=== PATIENT | female | born 1950 | race Caucasian/White ===

== ENCOUNTER 2018-12-24 12:13 | Inpatient (IN) ==
[2018-12-24] MEDS ORDERED: TIZANIDINE HCL 4 MG PO PRN (13:43)
[2018-12-24] MEDS ORDERED: Nitroglycerin 0.4 MG TAB.SUBL SL PRN (13:43)
[2018-12-24] MEDS ORDERED: Dextrose Gel 15 GM/37.5 ML TUBE PO PRN ×2 (14:12)
[2018-12-24] MEDS ORDERED: D5% in Water 1,000 ML IVC PRN (14:12)
[2018-12-24] MEDS ORDERED: *HR* Dextrose 50 % in Water (Vial) 50 ML VIAL IVP PRN (14:12)
[2018-12-24] MEDS: *HR* HYDROcodone/Acet 7.5/325 mg TABLET PO PRN ×2 (16:12→23:18)
[2018-12-24] MEDS: *HR* Metformin 500 MG TABLET PO SCH (16:13)
[2018-12-24] MEDS: Insulin LISPRO 300 UNITS/3 ML VIAL SQ SCH ×2 (16:13→21:05)
[2018-12-24] MEDS: *HR* Enoxaparin 30 MG/0.3 ML SYRINGE SQ SCH (18:28)
[2018-12-24] MEDS ORDERED: NON-FORMULARY MEDICATION 1 EACH EACH (Metformin Hcl [Glucophage Xr] 750 MG) PO SCH (21:00)
[2018-12-24] MEDS: Sennosides/Docusate Sodium TABLET PO SCH (21:05)
[2018-12-24] MEDS: tiZANidine 4 MG TABLET PO PRN (21:06)
[2018-12-24] MEDS ORDERED: Insulin DETEMIR 100 UNIT/ML per UNIT SQ ONE (21:10)
[2018-12-24] MEDS: Insulin DETEMIR 100 UNIT/ML X5UNITS SQ SCH (21:13)
[2018-12-25] MEDS: *HR* HYDROcodone/Acet 7.5/325 mg TABLET PO PRN ×3 (05:42→17:44)
[2018-12-25] MEDS: *HR* Enoxaparin 30 MG/0.3 ML SYRINGE SQ SCH ×2 (05:43→17:44)
[2018-12-25 05:53] LABS: Basophils % 0.3 %; Eosinophils # 0.2 K/mcL (0.0-0.6); Eosinophils % 2.3 %; Hematocrit 43.1 % (35.3-44.9); Hemoglobin 14.2 g/dL (11.5-15.4); Immature Granulocytes % 0.6 % (0-4); Lymphocytes # 2.6 K/mcL (0.6-4.6); Lymphocytes % 28.5 %; Mean Corpuscular HGB Conc 32.9 g/dL (31.6-35.5); Mean Corpuscular Hemoglobin 31.6 pg (28.0-33.3); Mean Platelet Volume 9.4 fL (9.4-12.4); Monocytes % 11.5 %; Neutrophils # 5.1 K/mcL (1.6-8.9); Platelet Count 328 K/mcL (140-400); Red Blood Count 4.49 M/mcL (3.82-4.97); Red Cell Distribution Width 13.1 % (11.5-14.5); Segmented Neutrophils % 56.8 %
[2018-12-25 06:03] LABS: Prothrombin Time 11.6 Seconds (9.4-12.1)
[2018-12-25 06:13] LABS: BUN/Creatinine Ratio 24 (6-26); Blood Urea Nitrogen 11 mg/dL (8-23); Calcium 8.7 mg/dL (8.6-10.3); Carbon Dioxide 34 mEq/L (23-29); Chloride 97 mEq/L (98-107); Glucose 144 mg/dL (70-105); Osmolality,Calculated 284 (280-300); Potassium 3.4 mEq/L (3.5-5.1); Sodium 136 mEq/L (136-145); eGFR For Non-African Americans > 60 (> 60)
[2018-12-25] MEDS: Tiotropium 18 MCG inhalation IH SCH (08:36)
[2018-12-25] MEDS: Insulin LISPRO 300 UNITS/3 ML VIAL SQ SCH ×4 (08:50→22:18)
[2018-12-25] MEDS ORDERED: NON-FORMULARY MEDICATION 1 EACH EACH (Mometasone Furoate [Nasonex] 2 SPRAY) NS SCH (09:00)
[2018-12-25] MEDS ORDERED: [UNRECOGNIZED DRUG - OTHER] PO SCH (09:00)
[2018-12-25] MEDS ORDERED: LOSARTAN POTASSIUM PO SCH (09:00)
[2018-12-25] MEDS ORDERED: NON-FORMULARY MEDICATION 1 EACH EACH (Metoprolol Succinate [Metoprolol Succinate] 100 MG) PO SCH (09:00)
[2018-12-25] MEDS ORDERED: FOLIC ACID PO SCH (09:00)
[2018-12-25] MEDS ORDERED: CALCIUM PO SCH (09:00)
[2018-12-25] MEDS ORDERED: BUMETANIDE 2 MG PO SCH (09:00)
[2018-12-25] MEDS ORDERED: NON-FORMULARY MEDICATION 1 EACH EACH (Cholecalciferol (Vitamin D3) [Vitamin D3] 1,000 UNIT PO SCH (09:00)
[2018-12-25] MEDS ORDERED: VIT K PO SCH (09:00)
[2018-12-25] MEDS ORDERED: FEXOFENADINE HCL 180 MG PO SCH (09:00)
[2018-12-25] MEDS ORDERED: NON-FORMULARY MEDICATION 1 EACH EACH (Pantoprazole Sodium [Protonix] 40 MG) PO SCH (09:00)
[2018-12-25] MEDS ORDERED: MV MN PO SCH (09:00)
[2018-12-25] MEDS ORDERED: NON-FORMULARY MEDICATION 1 EACH EACH (Duloxetine Hcl [Cymbalta] 60 MG) PO SCH (09:00)
[2018-12-25] MEDS ORDERED: NON-FORMULARY MEDICATION 1 EACH EACH (Tiotropium Bromide [Spiriva Respimat] 2 PUFF) IH SCH (09:00)
[2018-12-25] MEDS: Cholecalciferol (D-3) 1,000 UNIT TABLET PO SCH (09:23)
[2018-12-25] MEDS: *HR* Metformin 500 MG TABLET PO SCH ×3 (09:23→17:44)
[2018-12-25] MEDS: Multivit/Ca/Min/Fe/FA 1 TAB TABLET PO SCH (09:23)
[2018-12-25] MEDS: Metoprolol XL (24 HR) Succ 50 MG TAB.ER.24H PO SCH (09:23)
[2018-12-25] MEDS: Bumetanide 1 MG TABLET PO SCH (09:23)
[2018-12-25] MEDS: Sennosides/Docusate Sodium TABLET PO SCH ×2 (09:23→20:12)
[2018-12-25] MEDS: Vitamin B Complex/Vit C/Vit E 1 EACH TABLET PO SCH (09:23)
[2018-12-25] MEDS: BuPROPion XL (24 HR) 150 MG TABLET PO SCH (09:24)
[2018-12-25] MEDS: Loratadine 10 MG TABLET PO SCH (09:24)
[2018-12-25] MEDS: Nicotine 21 MG PATCH.TD24 TD SCH (09:24)
[2018-12-25] MEDS: Fluticasone Propionate Nasal 50 MCG/SPRAY BOTTLE NS SCH (09:25)
[2018-12-25] MEDS: JARDIANCE 25MG PO SCH (09:26)
--- NOTE | 2018-12-25 15:56 | Internal Med History&Physical ---
Date of Encounter: 12/25/18 Time of Encounter: 15:25 Assessment and Plan (1) Ankle fracture, bimalleolar, closed Current visit: Yes Status: Acute Status post surgical repair. PT and OT evaluations with ongoing intervention will be done. Qualifiers: Encounter type: subsequent encounter Laterality: left Fracture healing: with routine healing Qualified Code(s): S82.842D - Displaced bimalleolar fracture of left lower leg, subsequent encounter for closed fracture with routine healing (2) Goiter Current visit: Yes Status: Chronic Check TSH in a.m. (3) Hypertension Current visit: No Status: Chronic Continue Cozaar and Toprol. Qualifiers: Hypertension type: essential hypertension Qualified Code(s): I10 - Essential (primary) hypertension (4) COPD (chronic obstructive pulmonary disease) Current visit: No Status: Chronic Continue oxygen and inhalers. Qualifiers: COPD type: unspecified COPD Qualified Code(s): J44.9 - Chronic obstructive pulmonary disease, unspecified (5) Hypokalemia Current visit: Yes Status: Acute Probably secondary to diuretic use. Supplemental potassium will be ordered and labs monitored. (6) Diabetes mellitus Current visit: No Status: Chronic Hemoglobin A1c was 9.3% on 12/22/2018. Continue Levemir and Accu-Cheks with SSI. Qualifiers: Diabetes mellitus type: type 2 Diabetes mellitus intermediate card tender insulin use: unspecified care home insulin use status Diabetes mellitus complication status: with unspecified complications Qualified Code(s): E11.8 - Type 2 diabetes mellitus with unspecified complications Internal Medicine - H&P: HPI Chief complaint: Ankle fracture Admitted From: Hospital to Hospital Transfer Plans for Post Hospital Care: Home History of present illness: Ms. Barnett is a 68 year old female who sustained left ankle fracture and underwent repair at [facility]. Her postop course was unremarkable she was discharged to [facility] swing bed for rehabilitation therapy prior to returning to independent living. Her [facility] skeletal history is significant for right wrist fracture 2016. She has osteoporosis. She denies gout or other bone joint or muscle disorders. Past Med Surg Social Fam HX - Past Medical History Medical history: CHF, COPD, coronary artery disease, diabetes, fibromyalgia, GERD, hyperlipidemia, hypertension, myocardial infarction, other Additional medical history: Ulcer, anemia, barretts esophagus, fibromyalgia, enlarged thyroid, osteoporosis Psychiatric history: anxiety, depression - Past Surgical History Surgical History: appendectomy, other Additional surgical history: t&a,. oophorectomy,. D&C,. Cyst right buttocks,. cardiac sent - Social History Smoking Status: Current every day smoker Packs per day: 1 1/2 packs Smokeless Tobacco Status: No Alcohol use: none Drug use: none Internal Medicine - H&P: Meds BuPROPion XL (24 HR) [Wellbutrin Xl] 150 mg PO DAILY 01/01/16 [History] Clopidogrel [Plavix] 75 mg PO Q72H 01/01/16 [History] Duloxetine HCl [Cymbalta] 60 mg PO DAILY 01/01/16 [History] Fexofenadine HCl 180 mg PO DAILY 01/01/16 [History] Simvastatin [Zocor] 20 mg PO QPM 01/01/16 [History] Pantoprazole Sodium [Protonix] 40 mg PO DAILY 04/08/16 [History] Alendronate Sodium [Fosamax] 70 mg PO SA 07/30/16 [History] Albuterol Sulfate [Ventolin Hfa] 2 puff IH Q4H PRN 11/11/17 [History] Empagliflozin [Jardiance] 25 mg PO DAILY 11/11/17 [History] Losartan Potassium [Cozaar] 75 mg PO DAILY 11/11/17 [History] Montelukast [Singulair] 10 mg PO DAILY 11/11/17 [History] Tizanidine HCl [Zanaflex] 4 mg PO TID PRN 11/11/17 [History] Bumetanide 2 mg PO DAILY 12/21/18 [History] Cholecalciferol (Vitamin D3) [Vitamin D3] 1,000 unit PO DAILY 12/21/18 [History] Diclofenac Sodium 4 gm TP QID PRN 12/21/18 [History] Exenatide Microspheres [Bydureon Bcise] 2 mg SQ SA 12/21/18 [History] Folic Acid/Vit Bcomp,C [Hm Super Vitamin B Complex] 400 mcg PO DAILY 12/21/18 [History] Insulin ASPART [Novolog Flexpen] 5 - 15 unit SQ BIDWM 12/21/18 [History] Insulin Glargine,Hum.rec.anlog [Lantus Solostar] 10 unit SQ HS 12/21/18 [His tory] Insulin LISPRO [Humalog Kwikpen U-100] 5 - 15 unit SQ BIDWM 12/21/18 [History] Metformin HCl [Glucophage Xr] 750 mg PO BID 12/21/18 [History] Metoprolol Succinate 100 mg PO DAILY 12/21/18 [History] Mometasone Furoate [Nasonex] 2 spray NS DAILY 12/21/18 [History] Mv-Mn/Folic Acid/Calcium/Vit K [Women's 50 Plus Multivit Tab] 1 tab PO DAILY 12/21/18 [History] Nitroglycerin [Nitrostat] 0.4 mg SL Q5M PRN 12/21/18 [History] Tiotropium [place] [Spiriva Respimat] 2 puff IH QAM 12/21/18 [History] Enoxaparin [Lovenox] 30 mg SQ Q12HCO syringe 12/24/18 [Rx] HYDROcodone/Acet 7.5/325 mg [[place] 7.5-325 mg] 1 tab PO Q6HR PRN 3 Days #10 tablet 12/24/18 [Rx] Sennosides/Docusate Sodium [Senna Plus] 2 each PO BID tablet 12/24/18 [Rx] Allergy/AdvReac Type Severity Reaction Status Date / Time alprazolam [From Xanax] Allergy See Verified 12/21/18 05:33 Comments gabapentin [From Neurontin] Allergy Dizziness Verified 12/21/18 05:33 glycerin Allergy Hives Verified 12/21/18 05:33 haloperidol [From Haldol] Allergy See Verified 12/21/18 05:33 Comments latex Allergy Blister Verified 12/21/18 05:33 lisinopril Allergy Cough Verified 12/21/18 05:33 pregabalin [From Lyrica] Allergy Dizziness Verified 12/21/18 05:33 oxycodone [From Percocet] AdvReac See Verified 12/21/18 05:33 Comments All Systems PM: A 10-system review of systems was performed and is negative for pertinent findings except as documented above in the HPI. Review of systems: Review of systems from her November 2017 [facility] hospitalization were reviewed and revised as below. Gen.: Her weight has been stable at approximately 116 kg since the November 2017 hospitalization. Cardiovascular: She has history of hypertension. She has known ASHD status post IN at age 48. She had an LAD stent placed at the time of the IN in 1998. She had a Regadenoson nuclear test 12/07/2016 which showed no definitive evidence for ischemia or infarct and LVEF of 67%. She states she has been diagnosed with heart failure. An echocardiogram 09/30/2016 showed LVEF of 60% with reported LV mild diastolic dysfunction and no significant valvular abnormality. The E/A ratio was 0.8. She denies DVT or pulmonary embolus. She states she has had a single cerebrovascular stent placed for stenosis. Respiratory: She is has smoked since age 16 up to one and a half packs per day. She has a diagnosis of COPD and wears oxygen at bedtime and when necessary during the daytime. She had chest CT September 2018 which showed nodules. She reports a repeat CT will be done in a few days/weeks. GI: She denies disorders of her liver gallbladder or exocrine pancreas. : She denies hematuria or dysuria kidney stones Neurologic: She denies large distribution strokes or seizures. Endocrine: She was diagnosed with DM2 approximately 1993. Hemoglobin A1c was 9.3% on 12/22/2018. She has hyperlipidemia and history of goiter. Hematology/oncology: She has history of anemia. She denies malignancies or other blood disorders Psychiatric: She has depression but denies other mental health issues Muscle skeletal: She has osteoporosis but denies gout or other bone joint or muscle disorders. - Constitutional Vitals: Temp Pulse Resp BP Pulse Ox 97.5 F L 78 14 176/80 94 12/25/18 07:01 12/25/18 07:01 12/25/18 09:43 12/25/18 07:01 12/25/18 09:43 Exam: Gen.: She is a well-developed overweight female resting comfortably in bed who appears in no acute distress HEENT: Head is atraumatic and normocephalic. Eyes: EOMI. There is no scleral icterus. Mouth: Mucosa is moist. Neck: Supple and nontender. There is no thyromegaly or adenopathy noted. Heart: Regular without murmurs gallops or ectopics Lungs: No wheezes or crackles are heard. Abdomen: Soft and nontender. No masses or guarding noted. Extremities: The left lower leg has a splint and immobilization wrap which I did not remove. The right leg shows no cyanosis edema or clubbing noted. Dorsalis pedis and posterior tibial pulses are trace palpable. Neurologic: Mental status: She is talkative and a good historian. Cranial nerves: Smile is symmetric. Forehead wrinkles bilaterally. Tongue protrudes midline. EOMI. Motor: There is no pronator drift. Cerebellar: Finger to nose is intact bilaterally. Skin: Warm and dry Internal Med - H&P Results - Labs CBC & Chem 7: 12/25/18 04:50 12/25/18 04:50 Labs: Short CBC 12/25/18 Range/Units 04:50 WBC 9.0 (4.3-11.1) K/mcL Hgb 14.2 (11.5-15.4) g/dL Hct 43.1 (35.3-44.9) % Plt Count 328 (140-400) K/mcL Neutrophils # 5.1 (1.6-8.9) K/mcL BMP 12/25/18 04:50 Sodium 136 Potassium 3.4 L Chloride 97 L Carbon Dioxide 34 H BUN 11 Creatinine 0.46 L Glucose 144 H Calcium 8.7
[2018-12-25] MEDS: tiZANidine 4 MG TABLET PO PRN (21:25)
[2018-12-25] MEDS: Acetaminophen 325 MG TABLET PO PRN (21:25)
[2018-12-25] MEDS: Insulin DETEMIR 100 UNIT/ML X5UNITS SQ SCH (21:25)
[2018-12-25] MEDS: Budesonide/Formoterol 160/4.5 1 PUFF INH IH SCH (22:04)
[2018-12-26] MEDS: *HR* Enoxaparin 30 MG/0.3 ML SYRINGE SQ SCH ×2 (06:33→17:52)
[2018-12-26] MEDS: BuPROPion XL (24 HR) 150 MG TABLET PO SCH (07:34)
[2018-12-26] MEDS: *HR* Metformin 500 MG TABLET PO SCH ×3 (07:34→17:45)
[2018-12-26] MEDS: Vitamin B Complex/Vit C/Vit E 1 EACH TABLET PO SCH (07:34)
[2018-12-26] MEDS: Multivit/Ca/Min/Fe/FA 1 TAB TABLET PO SCH (07:34)
[2018-12-26] MEDS: Nicotine 21 MG PATCH.TD24 TD SCH (07:34)
[2018-12-26] MEDS: Sennosides/Docusate Sodium TABLET PO SCH ×2 (07:34→20:40)
[2018-12-26] MEDS: Cholecalciferol (D-3) 1,000 UNIT TABLET PO SCH (07:35)
[2018-12-26] MEDS: Metoprolol XL (24 HR) Succ 50 MG TAB.ER.24H PO SCH (07:35)
[2018-12-26] MEDS: *HR* HYDROcodone/Acet 7.5/325 mg TABLET PO PRN ×3 (07:35→20:40)
[2018-12-26] MEDS: Bumetanide 1 MG TABLET PO SCH (07:35)
[2018-12-26] MEDS: Loratadine 10 MG TABLET PO SCH (07:35)
[2018-12-26] MEDS: Insulin LISPRO 300 UNITS/3 ML VIAL SQ SCH ×4 (07:36→23:12)
[2018-12-26] MEDS: Fluticasone Propionate Nasal 50 MCG/SPRAY BOTTLE NS SCH (07:39)
[2018-12-26] MEDS: Tiotropium 18 MCG inhalation IH SCH (09:38)
[2018-12-26] MEDS: Budesonide/Formoterol 160/4.5 1 PUFF INH IH SCH ×2 (09:39→21:06)
[2018-12-26] MEDS: JARDIANCE 25MG PO SCH (10:25)
[2018-12-26] MEDS: Acetaminophen 325 MG TABLET PO PRN ×2 (11:41→23:46)
--- NOTE | 2018-12-26 18:06 | Internal Med Progress Note ---
Date of Encounter: 12/26/18 Time of Encounter: 17:55 - Assessment and plan (1) Ankle fracture, bimalleolar, closed Current Visit: Yes Status: Acute Assessment and plan: December 26. Continue PT and OT intervention. Nursing contacted surgeon's office today about her ongoing pain. Qualifiers: Encounter type: subsequent encounter Laterality: left Fracture healing: with routine healing Qualified Code(s): S82.842D - Displaced bimalleolar fracture of left lower leg, subsequent encounter for closed fracture with routine healing (2) Goiter Current Visit: Yes Status: Chronic Assessment and plan: December 26. TSH minimally changed from 10/28/2018 level at 0.168. I told her she could discuss with her PCP referral to endocrinology for further evaluation/treatment. (3) Hypertension Current Visit: No Status: Chronic Assessment and plan: December 26. Continue Cozaar and Toprol Qualifiers: Hypertension type: essential hypertension Qualified Code(s): I10 - Essential (primary) hypertension (4) COPD (chronic obstructive pulmonary disease) Current Visit: No Status: Chronic Assessment and plan: December 26. Continue oxygen and inhalers Qualifiers: COPD type: unspecified COPD Qualified Code(s): J44.9 - Chronic obstructive pulmonary disease, unspecified (5) Hypokalemia Current Visit: Yes Status: Acute Assessment and plan: December 26. Recheck labs in a.m. (6) Diabetes mellitus Current Visit: No Status: Chronic Assessment and plan: December 26. Hemoglobin A1c was 9.3% on 12/22/2018. Continue Levemir and Accu- Cheks with SSI. Qualifiers: Diabetes mellitus type: type 2 Diabetes mellitus longterm insulin use: unspecified longterm insulin use status Diabetes mellitus complication status: with unspecified complications Qualified Code(s): E11.8 - Type 2 diabetes mellitus with unspecified complications - Subjective Interval history: December 26. She has no new complaints. She has ongoing pain in the left ankle. - Constitutional Vitals: Temp Pulse Resp BP Pulse Ox 97.8 F 73 18 122/76 99 12/26/18 06:51 12/26/18 06:51 12/26/18 09:39 12/26/18 06:51 12/26/18 09:39 Exam: She is sitting in a chair at bedside and appears in no acute distress. Her affect is overall cheerful. I reviewed her medications and lab results. Internal Medicine: Result - Labs CBC & Chem 7: 12/25/18 04:50 12/25/18 04:50 - ABG Interpretation ABG results: PT/INR, D-dimer PT 11.6 Seconds (9.4-12.1) 12/25/18 04:50 Consult Discharge Plan - Plan Instructions: Open Reduction Internal Fixation (DC) Referrals: Juan Hernandez MD [Primary Care Provider] - 1 week
[2018-12-26] MEDS ORDERED: Insulin DETEMIR 100 UNIT/ML per UNIT SQ ONE (20:38)
[2018-12-26] MEDS: Insulin DETEMIR 100 UNIT/ML X5UNITS SQ SCH (20:40)
[2018-12-26] MEDS: tiZANidine 4 MG TABLET PO PRN (20:40)
[2018-12-27] MEDS: *HR* Enoxaparin 30 MG/0.3 ML SYRINGE SQ SCH ×2 (05:28→17:19)
[2018-12-27 05:54] LABS: BUN/Creatinine Ratio 28 (6-26); Blood Urea Nitrogen 13 mg/dL (8-23); Calcium 9.2 mg/dL (8.6-10.3); Carbon Dioxide 35 mEq/L (23-29); Chloride 98 mEq/L (98-107); Glucose 132 mg/dL (70-105); Osmolality,Calculated 288 (280-300); Potassium 3.6 mEq/L (3.5-5.1); Sodium 138 mEq/L (136-145); eGFR For Non-African Americans > 60 (> 60)
[2018-12-27] MEDS: Insulin LISPRO 300 UNITS/3 ML VIAL SQ SCH ×4 (07:55→19:25)
[2018-12-27] MEDS: *HR* Metformin 500 MG TABLET PO SCH ×3 (08:14→16:54)
[2018-12-27] MEDS: *HR* HYDROcodone/Acet 7.5/325 mg TABLET PO PRN ×3 (08:15→21:28)
[2018-12-27] MEDS: Vitamin B Complex/Vit C/Vit E 1 EACH TABLET PO SCH (08:15)
[2018-12-27] MEDS: Sennosides/Docusate Sodium TABLET PO SCH ×2 (08:15→20:38)
[2018-12-27] MEDS: BuPROPion XL (24 HR) 150 MG TABLET PO SCH (08:15)
[2018-12-27] MEDS: Bumetanide 1 MG TABLET PO SCH (08:15)
[2018-12-27] MEDS: Multivit/Ca/Min/Fe/FA 1 TAB TABLET PO SCH (08:16)
[2018-12-27] MEDS: Cholecalciferol (D-3) 1,000 UNIT TABLET PO SCH (08:16)
[2018-12-27] MEDS: Loratadine 10 MG TABLET PO SCH (08:17)
[2018-12-27] MEDS: Metoprolol XL (24 HR) Succ 50 MG TAB.ER.24H PO SCH (08:17)
[2018-12-27] MEDS: Fluticasone Propionate Nasal 50 MCG/SPRAY BOTTLE NS SCH (08:18)
[2018-12-27] MEDS: Nicotine 21 MG PATCH.TD24 TD SCH (08:18)
[2018-12-27] MEDS: JARDIANCE 25MG PO SCH (08:20)
[2018-12-27] MEDS: Budesonide/Formoterol 160/4.5 1 PUFF INH IH SCH ×2 (09:30→21:19)
[2018-12-27] MEDS: Tiotropium 18 MCG inhalation IH SCH (09:31)
--- NOTE | 2018-12-27 17:09 | Internal Med Progress Note ---
Date of Encounter: 12/27/18 Time of Encounter: 17:00 - Assessment and plan (1) Ankle fracture, bimalleolar, closed Current Visit: Yes Status: Acute Assessment and plan: December 26. Continue PT and OT intervention. Nursing contacted surgeon's office today about her ongoing pain. December 27. She reports follow up with her orthopedic surgeon on 01/08/2019. Qualifiers: Encounter type: subsequent encounter Laterality: left Fracture healing: with routine healing Qualified Code(s): S82.842D - Displaced bimalleolar fracture of left lower leg, subsequent encounter for closed fracture with routine healing (2) Goiter Current Visit: Yes Status: Chronic Assessment and plan: December 26. TSH minimally changed from 10/28/2018 level at 0.168. I told her she could discuss with her PCP referral to endocrinology for further evalu ation/treatment. December 27. Free T4 and T3 levels normal at 1.46 ng/mL and 3.27 pg/ml respectively. (3) Hypertension Current Visit: No Status: Chronic Assessment and plan: December 26. Continue Cozaar and Toprol Qualifiers: Hypertension type: essential hypertension Qualified Code(s): I10 - Essential (primary) hypertension (4) COPD (chronic obstructive pulmonary disease) Current Visit: No Status: Chronic Assessment and plan: December 26. Continue oxygen and inhalers Qualifiers: COPD type: unspecified COPD Qualified Code(s): J44.9 - Chronic obstructive pulmonary disease, unspecified (5) Hypokalemia Current Visit: Yes Status: Acute Assessment and plan: December 26. Recheck labs in a.m. December 27. Potassium level normal at 3.6. Continue supplemental potassium. (6) Diabetes mellitus Current Visit: No Status: Chronic Assessment and plan: December 26. Hemoglobin A1c was 9.3% on 12/22/2018. Continue Levemir and Accu- Cheks with SSI. Qualifiers: Diabetes mellitus type: type 2 Diabetes mellitus retirement insulin use: unspecified retirement insulin use status Diabetes mellitus complication status: with unspecified complications Qualified Code(s): E11.8 - Type 2 diabetes mellitus with unspecified complications - Subjective Interval history: December 26. She has no new complaints. She has ongoing pain in the left ankle. December 27. She has no new complaints. She states she has fluctuating pain in her left ankle. Overall she thinks it has lessened. - Constitutional Vitals: Temp Pulse Resp BP Pulse Ox 98.0 F 78 20 135/79 94 12/27/18 15:08 12/27/18 15:08 12/27/18 15:08 12/27/18 15:08 12/27/18 15:08 Exam: She is sitting in a chair at bedside resting comfortably. Her affect is bright and cheerful. I reviewed her medications and lab results. Internal Medicine: Result - Labs CBC & Chem 7: 12/25/18 04:50 12/27/18 04:18 Labs: BMP 12/27/18 04:18 Sodium 138 Potassium 3.6 Chloride 98 Carbon Dioxide 35 H BUN 13 Creatinine 0.47 L Glucose 132 H Calcium 9.2 - ABG Interpretation ABG results: PT/INR, D-dimer PT 11.6 Seconds (9.4-12.1) 12/25/18 04:50 Consult Discharge Plan - Plan Instructions: Open Reduction Internal Fixation (DC) Referrals: Juan Hernandez MD [Primary Care Provider] - 1 week
[2018-12-27] MEDS: Insulin DETEMIR 100 UNIT/ML X5UNITS SQ SCH (20:38)
[2018-12-28] MEDS: Acetaminophen 325 MG TABLET PO PRN ×3 (00:04→23:49)
[2018-12-28] MEDS: *HR* Enoxaparin 30 MG/0.3 ML SYRINGE SQ SCH ×2 (05:53→17:17)
[2018-12-28] MEDS: Bumetanide 1 MG TABLET PO SCH (08:17)
[2018-12-28] MEDS: Cholecalciferol (D-3) 1,000 UNIT TABLET PO SCH (08:17)
[2018-12-28] MEDS: Vitamin B Complex/Vit C/Vit E 1 EACH TABLET PO SCH (08:17)
[2018-12-28] MEDS: Multivit/Ca/Min/Fe/FA 1 TAB TABLET PO SCH (08:17)
[2018-12-28] MEDS: Metoprolol XL (24 HR) Succ 50 MG TAB.ER.24H PO SCH (08:17)
[2018-12-28] MEDS: BuPROPion XL (24 HR) 150 MG TABLET PO SCH (08:18)
[2018-12-28] MEDS: Loratadine 10 MG TABLET PO SCH (08:18)
[2018-12-28] MEDS: *HR* HYDROcodone/Acet 7.5/325 mg TABLET PO PRN ×2 (08:18→21:43)
[2018-12-28] MEDS: Sennosides/Docusate Sodium TABLET PO SCH ×2 (08:18→21:43)
[2018-12-28] MEDS: *HR* Metformin 500 MG TABLET PO SCH ×3 (08:18→17:18)
[2018-12-28] MEDS: JARDIANCE 25MG PO SCH (08:18)
[2018-12-28] MEDS: Nicotine 21 MG PATCH.TD24 TD SCH (08:19)
[2018-12-28] MEDS: Fluticasone Propionate Nasal 50 MCG/SPRAY BOTTLE NS SCH (08:20)
[2018-12-28] MEDS: Insulin LISPRO 300 UNITS/3 ML VIAL SQ SCH ×4 (08:23→21:42)
[2018-12-28] MEDS: Tiotropium 18 MCG inhalation IH SCH ×2 (09:05→10:15)
[2018-12-28] MEDS: Budesonide/Formoterol 160/4.5 1 PUFF INH IH SCH ×2 (10:15→22:16)
[2018-12-28] MEDS: Oxymetazoline Nasal SPRAY BOTTLE NS SCH ×2 (12:55→17:17)
[2018-12-28] MEDS: tiZANidine 4 MG TABLET PO PRN (12:56)
[2018-12-28] MEDS: Insulin DETEMIR 100 UNIT/ML X5UNITS SQ SCH (21:41)
[2018-12-29] MEDS: *HR* Enoxaparin 30 MG/0.3 ML SYRINGE SQ SCH ×2 (05:17→17:17)
[2018-12-29] MEDS: *HR* HYDROcodone/Acet 7.5/325 mg TABLET PO PRN ×3 (05:17→19:56)
[2018-12-29] MEDS: Oxymetazoline Nasal SPRAY BOTTLE NS SCH ×2 (05:22→17:15)
[2018-12-29] MEDS: Insulin LISPRO 300 UNITS/3 ML VIAL SQ SCH ×4 (07:55→20:26)
[2018-12-29] MEDS: Nicotine 21 MG PATCH.TD24 TD SCH (08:33)
[2018-12-29] MEDS: Bumetanide 1 MG TABLET PO SCH (08:34)
[2018-12-29] MEDS: Fluticasone Propionate Nasal 50 MCG/SPRAY BOTTLE NS SCH (08:34)
[2018-12-29] MEDS: BuPROPion XL (24 HR) 150 MG TABLET PO SCH (08:35)
[2018-12-29] MEDS: Loratadine 10 MG TABLET PO SCH (08:35)
[2018-12-29] MEDS: *HR* Metformin 500 MG TABLET PO SCH ×3 (08:35→17:10)
[2018-12-29] MEDS: Multivit/Ca/Min/Fe/FA 1 TAB TABLET PO SCH (08:35)
[2018-12-29] MEDS: Vitamin B Complex/Vit C/Vit E 1 EACH TABLET PO SCH (08:35)
[2018-12-29] MEDS: Cholecalciferol (D-3) 1,000 UNIT TABLET PO SCH (08:35)
[2018-12-29] MEDS: JARDIANCE 25MG PO SCH (08:36)
[2018-12-29] MEDS: Metoprolol XL (24 HR) Succ 50 MG TAB.ER.24H PO SCH (08:36)
[2018-12-29] MEDS: Sennosides/Docusate Sodium TABLET PO SCH ×2 (08:36→19:56)
[2018-12-29] MEDS: Acetaminophen 325 MG TABLET PO PRN (08:46)
[2018-12-29] MEDS: Tiotropium 18 MCG inhalation IH SCH (10:33)
[2018-12-29] MEDS: Budesonide/Formoterol 160/4.5 1 PUFF INH IH SCH ×2 (10:33→22:13)
--- NOTE | 2018-12-29 15:59 | Internal Med Progress Note ---
Date of Encounter: 12/29/18 Time of Encounter: 15:50 - Assessment and plan (1) Ankle fracture, bimalleolar, closed Current Visit: Yes Status: Acute Assessment and plan: December 26. Continue PT and OT intervention. Nursing contacted surgeon's office today about her ongoing pain. December 27. She reports follow up with her orthopedic surgeon on 01/08/2019. Qualifiers: Encounter type: subsequent encounter Laterality: left Fracture healing: with routine healing Qualified Code(s): S82.842D - Displaced bimalleolar fracture of left lower leg, subsequent encounter for closed fracture with routine healing (2) Goiter Current Visit: Yes Status: Chronic Assessment and plan: December 26. TSH minimally changed from 10/28/2018 level at 0.168. I told her she could discuss with her PCP referral to endocrinology for further evalu ation/treatment. December 27. Free T4 and T3 levels normal at 1.46 ng/mL and 3.27 pg/ml respectively. (3) Hypertension Current Visit: No Status: Chronic Assessment and plan: December 26. Continue Cozaar and Toprol Qualifiers: Hypertension type: essential hypertension Qualified Code(s): I10 - Essential (primary) hypertension (4) COPD (chronic obstructive pulmonary disease) Current Visit: No Status: Chronic Assessment and plan: December 26. Continue oxygen and inhalers Qualifiers: COPD type: unspecified COPD Qualified Code(s): J44.9 - Chronic obstructive pulmonary disease, unspecified (5) Hypokalemia Current Visit: Yes Status: Acute Assessment and plan: December 26. Recheck labs in a.m. December 27. Potassium level normal at 3.6. Continue supplemental potassium. December 29. Recheck labs in a.m. (6) Diabetes mellitus Current Visit: No Status: Chronic Assessment and plan: December 26. Hemoglobin A1c was 9.3% on 12/22/2018. Continue Levemir and Accu- Cheks with SSI. December 29. Accu-Chek show significant fluctuation. Continue Levemir and SSI. 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 She has no new complaints. She has ongoing pain in the left ankle. December 27. She has no new complaints. She states she has fluctuating pain in her left ankle. Overall she thinks it has lessened. December 27. She has no new complaints. She states her ankle pain has lessened. She was ordered decongestant nasal spray yesterday but states it has not improved her sinus congestion. - Constitutional Vitals: Temp Pulse Resp BP Pulse Ox 97.5 F L 81 15 117/65 95 12/29/18 07:31 12/29/18 07:31 12/29/18 10:34 12/29/18 07:12/29/18 10:34 Exam: She is resting comfortably in bed and appears in no acute distress. Her affect is bright and cheerful. Her left leg is elevated on a pillow. There is no edema of the dorsum of the left foot. The area is no edema of the right leg. I reviewed her medications and lab results. Internal Medicine: Result - Labs CBC & Chem 7: 12/25/18 04:50 12/27/18 04:18 - ABG Interpretation ABG results: PT/INR, D-dimer PT 11.6 Seconds (9.4-12.1) 12/25/18 04:50 Consult Discharge Plan - Plan Instructions: Open Reduction Internal Fixation (DC) Referrals: Juan Hernandez MD [Primary Care Provider] - 1 week
[2018-12-29] MEDS: Insulin DETEMIR 100 UNIT/ML X5UNITS SQ SCH (19:56)
[2018-12-30] MEDS: Acetaminophen 325 MG TABLET PO PRN ×2 (01:15→08:49)
[2018-12-30] MEDS: Oxymetazoline Nasal SPRAY BOTTLE NS SCH (05:47)
[2018-12-30] MEDS: *HR* HYDROcodone/Acet 7.5/325 mg TABLET PO PRN ×3 (05:52→18:23)
[2018-12-30] MEDS: *HR* Enoxaparin 30 MG/0.3 ML SYRINGE SQ SCH ×2 (05:53→16:56)
[2018-12-30] MEDS: Insulin LISPRO 300 UNITS/3 ML VIAL SQ SCH ×4 (08:08→22:43)
[2018-12-30] MEDS: *HR* Metformin 500 MG TABLET PO SCH ×3 (08:52→16:55)
[2018-12-30] MEDS: BuPROPion XL (24 HR) 150 MG TABLET PO SCH (08:52)
[2018-12-30] MEDS: Multivit/Ca/Min/Fe/FA 1 TAB TABLET PO SCH (08:52)
[2018-12-30] MEDS: Sennosides/Docusate Sodium TABLET PO SCH (08:52)
[2018-12-30] MEDS: Metoprolol XL (24 HR) Succ 50 MG TAB.ER.24H PO SCH (08:52)
[2018-12-30] MEDS: Cholecalciferol (D-3) 1,000 UNIT TABLET PO SCH (08:52)
[2018-12-30] MEDS: Vitamin B Complex/Vit C/Vit E 1 EACH TABLET PO SCH (08:52)
[2018-12-30] MEDS: Loratadine 10 MG TABLET PO SCH (08:53)
[2018-12-30] MEDS: Fluticasone Propionate Nasal 50 MCG/SPRAY BOTTLE NS SCH (08:53)
[2018-12-30] MEDS: Bumetanide 1 MG TABLET PO SCH (08:53)
[2018-12-30] MEDS: JARDIANCE 25MG PO SCH (08:54)
[2018-12-30] MEDS: Nicotine 21 MG PATCH.TD24 TD SCH (08:54)
[2018-12-30] MEDS: Budesonide/Formoterol 160/4.5 1 PUFF INH IH SCH ×2 (09:26→22:10)
[2018-12-30] MEDS: Tiotropium 18 MCG inhalation IH SCH (09:26)
[2018-12-30] MEDS ORDERED: Sennosides/Docusate Sodium TABLET PO PRN (09:36)
[2018-12-30] MEDS: BYDUREON BCISE 2 MG SQ SCH (12:36)
[2018-12-30] MEDS ORDERED: NON-FORMULARY MEDICATION 1 EACH EACH (Alendronate Sodium [Fosamax] 70 MG) PO SCH (13:43)
[2018-12-30] MEDS: Insulin DETEMIR 100 UNIT/ML X5UNITS SQ SCH (22:43)
[2018-12-31] MEDS: *HR* HYDROcodone/Acet 7.5/325 mg TABLET PO PRN ×3 (00:34→17:46)
[2018-12-31] MEDS: tiZANidine 4 MG TABLET PO PRN ×2 (00:34→08:34)
[2018-12-31] MEDS: *HR* Enoxaparin 30 MG/0.3 ML SYRINGE SQ SCH ×2 (06:13→17:44)
[2018-12-31 06:41] LABS: Basophils % 0.4 %; Eosinophils # 0.2 K/mcL (0.0-0.6); Eosinophils % 2.4 %; Hematocrit 41.6 % (35.3-44.9); Hemoglobin 13.5 g/dL (11.5-15.4); Immature Granulocytes % 0.5 % (0-4); Lymphocytes # 3.4 K/mcL (0.6-4.6); Lymphocytes % 35.8 %; Mean Corpuscular HGB Conc 32.5 g/dL (31.6-35.5); Mean Corpuscular Hemoglobin 31.3 pg (28.0-33.3); Mean Corpuscular Volume 96.3 fL (83.0-100.0); Mean Platelet Volume 9.2 fL (9.4-12.4); Monocytes # 0.8 K/mcL (0.0-1.3); Monocytes % 8.5 %; Neutrophils # 4.9 K/mcL (1.6-8.9); Platelet Count 401 K/mcL (140-400); Red Blood Count 4.32 M/mcL (3.82-4.97); Red Cell Distribution Width 13.1 % (11.5-14.5); Segmented Neutrophils % 52.4 %
[2018-12-31 07:08] LABS: BUN/Creatinine Ratio 23 (6-26); Blood Urea Nitrogen 13 mg/dL (8-23); Calcium 9.1 mg/dL (8.6-10.3); Carbon Dioxide 34 mEq/L (23-29); Chloride 99 mEq/L (98-107); Glucose 126 mg/dL (70-105); Osmolality,Calculated 284 (280-300); Sodium 136 mEq/L (136-145); eGFR For Non-African Americans > 60 (> 60)
[2018-12-31] MEDS: Insulin LISPRO 300 UNITS/3 ML VIAL SQ SCH ×4 (07:50→22:20)
[2018-12-31] MEDS: JARDIANCE 25MG PO SCH (08:22)
[2018-12-31] MEDS: Fluticasone Propionate Nasal 50 MCG/SPRAY BOTTLE NS SCH (08:22)
[2018-12-31] MEDS: Nicotine 21 MG PATCH.TD24 TD SCH (08:32)
[2018-12-31] MEDS: Vitamin B Complex/Vit C/Vit E 1 EACH TABLET PO SCH (08:33)
[2018-12-31] MEDS: Loratadine 10 MG TABLET PO SCH (08:33)
[2018-12-31] MEDS: Multivit/Ca/Min/Fe/FA 1 TAB TABLET PO SCH (08:33)
[2018-12-31] MEDS: *HR* Metformin 500 MG TABLET PO SCH ×3 (08:33→17:45)
[2018-12-31] MEDS: Bumetanide 1 MG TABLET PO SCH (08:33)
[2018-12-31] MEDS: Metoprolol XL (24 HR) Succ 50 MG TAB.ER.24H PO SCH (08:33)
[2018-12-31] MEDS: BuPROPion XL (24 HR) 150 MG TABLET PO SCH (08:33)
[2018-12-31] MEDS: Cholecalciferol (D-3) 1,000 UNIT TABLET PO SCH (08:34)
[2018-12-31] MEDS: Tiotropium 18 MCG inhalation IH SCH (09:17)
[2018-12-31] MEDS: Budesonide/Formoterol 160/4.5 1 PUFF INH IH SCH ×2 (09:18→22:01)
[2018-12-31] MEDS: Acetaminophen 325 MG TABLET PO PRN (13:43)
[2018-12-31] MEDS: Insulin DETEMIR 100 UNIT/ML X5UNITS SQ SCH (22:19)
[2019-01-01] MEDS: *HR* Enoxaparin 30 MG/0.3 ML SYRINGE SQ SCH ×2 (06:41→17:06)
[2019-01-01] MEDS: DICLOFENAC TOPICAL TP PRN ×2 (08:38→20:55)
[2019-01-01] MEDS: Nicotine 21 MG PATCH.TD24 TD SCH (08:39)
[2019-01-01] MEDS: *HR* HYDROcodone/Acet 7.5/325 mg TABLET PO PRN ×3 (08:39→21:59)
[2019-01-01] MEDS: Metoprolol XL (24 HR) Succ 50 MG TAB.ER.24H PO SCH (08:40)
[2019-01-01] MEDS: BuPROPion XL (24 HR) 150 MG TABLET PO SCH (08:40)
[2019-01-01] MEDS: Cholecalciferol (D-3) 1,000 UNIT TABLET PO SCH (08:40)
[2019-01-01] MEDS: *HR* Metformin 500 MG TABLET PO SCH ×3 (08:40→17:02)
[2019-01-01] MEDS: Multivit/Ca/Min/Fe/FA 1 TAB TABLET PO SCH (08:40)
[2019-01-01] MEDS: Loratadine 10 MG TABLET PO SCH (08:40)
[2019-01-01] MEDS: Vitamin B Complex/Vit C/Vit E 1 EACH TABLET PO SCH (08:40)
[2019-01-01] MEDS: Bumetanide 1 MG TABLET PO SCH (08:41)
[2019-01-01] MEDS: Fluticasone Propionate Nasal 50 MCG/SPRAY BOTTLE NS SCH (08:41)
[2019-01-01] MEDS: JARDIANCE 25MG PO SCH (08:42)
[2019-01-01] MEDS: Insulin LISPRO 300 UNITS/3 ML VIAL SQ SCH ×4 (09:01→20:51)
[2019-01-01] MEDS: Budesonide/Formoterol 160/4.5 1 PUFF INH IH SCH ×2 (09:55→21:42)
[2019-01-01] MEDS: Tiotropium 18 MCG inhalation IH SCH (09:56)
[2019-01-01] MEDS: tiZANidine 4 MG TABLET PO PRN ×2 (10:06→21:59)
--- NOTE | 2019-01-01 12:30 | Internal Med Progress Note ---
Date of Encounter: 01/01/19 Time of Encounter: 12:10 - Assessment and plan (1) Ankle fracture, bimalleolar, closed Current Visit: Yes Status: Acute Assessment and plan: December 26. Continue PT and OT intervention. Nursing contacted surgeon's office today about her ongoing pain. December 27. She reports follow up with her orthopedic surgeon on 01/08/2019. Qualifiers: Encounter type: subsequent encounter Laterality: left Fracture healing: with routine healing Qualified Code(s): S82.842D - Displaced bimalleolar fracture of left lower leg, subsequent encounter for closed fracture with routine healing (2) Goiter Current Visit: Yes Status: Chronic Assessment and plan: December 26. TSH minimally changed from 10/28/2018 level at 0.168. I told her she could discuss with her PCP referral to endocrinology for further evalu ation/treatment. December 27. Free T4 and T3 levels normal at 1.46 ng/mL and 3.27 pg/ml respectively. (3) Hypertension Current Visit: No Status: Chronic Assessment and plan: December 26. Continue Cozaar and Toprol January 01. Blood pressure well controlled. Continue present Rx. Qualifiers: Hypertension type: essential hypertension Qualified Code(s): I10 - Essential (primary) hypertension (4) COPD (chronic obstructive pulmonary disease) Current Visit: No Status: Chronic Assessment and plan: December 26. Continue oxygen and inhalers Qualifiers: COPD type: unspecified COPD Qualified Code(s): J44.9 - Chronic obstructive pulmonary disease, unspecified (5) Hypokalemia Current Visit: Yes Status: Acute Assessment and plan: December 26. Recheck labs in a.m. December 27. Potassium level normal at 3.6. Continue supplemental potassium. December 29. Recheck labs in a.m. January 01. Potassium normal at 4.0. (6) Diabetes mellitus Current Visit: No Status: Chronic Assessment and plan: December 26. Hemoglobin A1c was 9.3% on 12/22/2018. Continue Levemir and Accu- Cheks with SSI. December 29. Accu-Chek show significant fluctuation. Continue Levemir and SSI. 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 She has no new complaints. She has ongoing pain in the left ankle. December 27. She has no new complaints. She states she has fluctuating pain in her left ankle. Overall she thinks it has lessened. December 27. She has no new complaints. She states her ankle pain has lessened. She was ordered decongestant nasal spray yesterday but states it has not improved her sinus congestion. January 01. She has no new complaints. She states her ankle pain has lessened overall. - Constitutional Vitals: Temp Pulse Resp BP Pulse Ox 97.5 F L 72 14 111/64 95 01/01/19 07:44 01/01/19 07:44 01/01/19 09:55 01/01/19 07:44 01/01/19 09:55 Exam: She is resting comfortably in bed and appears in no acute distress. Her affect is bright and cheerful. I reviewed her medications and lab results. Internal Medicine: Result - Labs CBC & Chem 7: 12/31/18 06:13 12/31/18 06:13 - ABG Interpretation ABG results: PT/INR, D-dimer PT 11.6 Seconds (9.4-12.1) 12/25/18 04:50 Consult Discharge Plan - Plan Instructions: Open Reduction Internal Fixation (DC) Referrals: Juan Hernandez MD [Primary Care Provider] - 1 week
[2019-01-01] MEDS: Acetaminophen 325 MG TABLET PO PRN (17:01)
[2019-01-01] MEDS: Insulin DETEMIR 100 UNIT/ML X5UNITS SQ SCH (20:54)
[2019-01-02] MEDS: *HR* Enoxaparin 30 MG/0.3 ML SYRINGE SQ SCH ×2 (06:17→17:56)
[2019-01-02] MEDS: Cholecalciferol (D-3) 1,000 UNIT TABLET PO SCH (08:38)
[2019-01-02] MEDS: Metoprolol XL (24 HR) Succ 50 MG TAB.ER.24H PO SCH (08:38)
[2019-01-02] MEDS: Bumetanide 1 MG TABLET PO SCH (08:39)
[2019-01-02] MEDS: Vitamin B Complex/Vit C/Vit E 1 EACH TABLET PO SCH (08:41)
[2019-01-02] MEDS: *HR* HYDROcodone/Acet 7.5/325 mg TABLET PO PRN ×3 (08:41→21:51)
[2019-01-02] MEDS: BuPROPion XL (24 HR) 150 MG TABLET PO SCH (08:42)
[2019-01-02] MEDS: Loratadine 10 MG TABLET PO SCH (08:42)
[2019-01-02] MEDS: *HR* Metformin 500 MG TABLET PO SCH ×3 (08:42→15:11)
[2019-01-02] MEDS: Multivit/Ca/Min/Fe/FA 1 TAB TABLET PO SCH (08:42)
[2019-01-02] MEDS: Nicotine 21 MG PATCH.TD24 TD SCH (08:43)
[2019-01-02] MEDS: Fluticasone Propionate Nasal 50 MCG/SPRAY BOTTLE NS SCH (08:50)
[2019-01-02] MEDS: JARDIANCE 25MG PO SCH (08:50)
[2019-01-02] MEDS: DICLOFENAC TOPICAL TP PRN (08:52)
[2019-01-02] MEDS: Acetaminophen 325 MG TABLET PO PRN (08:53)
[2019-01-02] MEDS: tiZANidine 4 MG TABLET PO PRN ×2 (08:55→21:51)
[2019-01-02] MEDS: Insulin LISPRO 300 UNITS/3 ML VIAL SQ SCH ×4 (10:10→20:10)
[2019-01-02] MEDS: Tiotropium 18 MCG inhalation IH SCH (10:57)
[2019-01-02] MEDS: Budesonide/Formoterol 160/4.5 1 PUFF INH IH SCH ×2 (10:57→21:40)
[2019-01-02] MEDS: Insulin DETEMIR 100 UNIT/ML X5UNITS SQ SCH (20:18)
[2019-01-03] MEDS: Acetaminophen 325 MG TABLET PO PRN (03:53)
[2019-01-03] MEDS: *HR* Enoxaparin 30 MG/0.3 ML SYRINGE SQ SCH ×2 (06:27→17:06)
[2019-01-03] MEDS: *HR* HYDROcodone/Acet 7.5/325 mg TABLET PO PRN ×3 (06:29→21:55)
[2019-01-03] MEDS: Insulin LISPRO 300 UNITS/3 ML VIAL SQ SCH ×4 (08:51→21:27)
[2019-01-03] MEDS: Multivit/Ca/Min/Fe/FA 1 TAB TABLET PO SCH (08:54)
[2019-01-03] MEDS: Cholecalciferol (D-3) 1,000 UNIT TABLET PO SCH (08:54)
[2019-01-03] MEDS: Bumetanide 1 MG TABLET PO SCH (08:58)
[2019-01-03] MEDS: Loratadine 10 MG TABLET PO SCH (08:58)
[2019-01-03] MEDS: Nicotine 21 MG PATCH.TD24 TD SCH (08:59)
[2019-01-03] MEDS: Vitamin B Complex/Vit C/Vit E 1 EACH TABLET PO SCH (08:59)
[2019-01-03] MEDS: BuPROPion XL (24 HR) 150 MG TABLET PO SCH (08:59)
[2019-01-03] MEDS: *HR* Metformin 500 MG TABLET PO SCH ×3 (08:59→17:06)
[2019-01-03] MEDS: Metoprolol XL (24 HR) Succ 50 MG TAB.ER.24H PO SCH (08:59)
[2019-01-03] MEDS: JARDIANCE 25MG PO SCH (09:01)
[2019-01-03] MEDS: Fluticasone Propionate Nasal 50 MCG/SPRAY BOTTLE NS SCH (09:01)
[2019-01-03] MEDS: Tiotropium 18 MCG inhalation IH SCH (09:11)
[2019-01-03] MEDS: Budesonide/Formoterol 160/4.5 1 PUFF INH IH SCH ×2 (09:11→22:41)
--- NOTE | 2019-01-03 11:50 | Internal Med Progress Note ---
Date of Encounter: 01/03/19 Time of Encounter: 11:36 - Assessment and plan (1) Ankle fracture, bimalleolar, closed Current Visit: Yes Status: Acute Assessment and plan: December 26. Continue PT and OT intervention. Nursing contacted surgeon's office today about her ongoing pain. December 27. She reports follow up with her orthopedic surgeon on 01/08/2019. Qualifiers: Encounter type: subsequent encounter Laterality: left Fracture healing: with routine healing Qualified Code(s): S82.842D - Displaced bimalleolar fracture of left lower leg, subsequent encounter for closed fracture with routine healing (2) Goiter Current Visit: Yes Status: Chronic Assessment and plan: December 26. TSH minimally changed from 10/28/2018 level at 0.168. I told her she could discuss with her PCP referral to endocrinology for further evalu ation/treatment. December 27. Free T4 and T3 levels normal at 1.46 ng/mL and 3.27 pg/ml respectively. (3) Hypertension Current Visit: No Status: Chronic Assessment and plan: December 26. Continue Cozaar and Toprol January 01. Blood pressure well controlled. Continue present Rx. Qualifiers: Hypertension type: essential hypertension Qualified Code(s): I10 - Essential (primary) hypertension (4) COPD (chronic obstructive pulmonary disease) Current Visit: No Status: Chronic Assessment and plan: December 26. Continue oxygen and inhalers Qualifiers: COPD type: unspecified COPD Qualified Code(s): J44.9 - Chronic obstructive pulmonary disease, unspecified (5) Hypokalemia Current Visit: Yes Status: Acute Assessment and plan: December 26. Recheck labs in a.m. December 27. Potassium level normal at 3.6. Continue supplemental potassium. December 29. Recheck labs in a.m. January 01. Potassium normal at 4.0. (6) Diabetes mellitus Current Visit: No Status: Chronic Assessment and plan: December 26. Hemoglobin A1c was 9.3% on 12/22/2018. Continue Levemir and Accu- Cheks with SSI. December 29. Accu-Chek show significant fluctuation. Continue Levemir and SSI. Qualifiers: Diabetes mellitus type: type 2 Diabetes mellitus bed bug exterminator insulin use: unspecified bed bug exterminator insulin use status Diabetes mellitus complication status: with unspecified complications Qualified Code(s): E11.8 - Type 2 diabetes mellitus with unspecified complications - Subjective Interval history: December 26. She has no new complaints. She has ongoing pain in the left ankle. December 27. She has no new complaints. She states she has fluctuating pain in her left ankle. Overall she thinks it has lessened. December 27. She has no new complaints. She states her ankle pain has lessened. She was ordered decongestant nasal spray yesterday but states it has not improved her sinus congestion. January 01. She has no new complaints. She states her ankle pain has lessened overall. January 03. She has no new complaints. - Constitutional Vitals: Temp Pulse Resp BP Pulse Ox 97.7 F 66 18 132/83 93 01/03/19 06:43 01/03/19 06:43 01/03/19 09:12 01/03/19 06:43 01/03/19 09:12 Exam: She is resting comfortably in a chair at bedside and appears in no acute distress. Her affect is bright and cheerful. I reviewed her medications and lab results. Internal Medicine: Result - Labs CBC & Chem 7: 12/31/18 06:13 12/31/18 06:13 - ABG Interpretation ABG results: PT/INR, D-dimer PT 11.6 Seconds (9.4-12.1) 12/25/18 04:50 Consult Discharge Plan - Plan Instructions: Open Reduction Internal Fixation (DC) Referrals: Juan Hernandez MD [Primary Care Provider] - 1 week
[2019-01-03] MEDS: Insulin DETEMIR 100 UNIT/ML X5UNITS SQ SCH (21:27)
[2019-01-03] MEDS: tiZANidine 4 MG TABLET PO PRN (21:55)
[2019-01-04] MEDS: *HR* HYDROcodone/Acet 7.5/325 mg TABLET PO PRN ×3 (04:30→21:58)
[2019-01-04] MEDS: tiZANidine 4 MG TABLET PO PRN ×2 (06:20→21:58)
[2019-01-04] MEDS: *HR* Enoxaparin 30 MG/0.3 ML SYRINGE SQ SCH ×2 (06:20→18:09)
[2019-01-04] MEDS: Insulin LISPRO 300 UNITS/3 ML VIAL SQ SCH ×4 (07:52→20:40)
[2019-01-04] MEDS: Tiotropium 18 MCG inhalation IH SCH (09:19)
[2019-01-04] MEDS: Budesonide/Formoterol 160/4.5 1 PUFF INH IH SCH ×2 (09:19→22:09)
[2019-01-04] MEDS: Bumetanide 1 MG TABLET PO SCH (10:17)
[2019-01-04] MEDS: Vitamin B Complex/Vit C/Vit E 1 EACH TABLET PO SCH (10:17)
[2019-01-04] MEDS: Loratadine 10 MG TABLET PO SCH (10:17)
[2019-01-04] MEDS: Metoprolol XL (24 HR) Succ 50 MG TAB.ER.24H PO SCH (10:18)
[2019-01-04] MEDS: Acetaminophen 325 MG TABLET PO PRN (10:18)
[2019-01-04] MEDS: Multivit/Ca/Min/Fe/FA 1 TAB TABLET PO SCH (10:18)
[2019-01-04] MEDS: BuPROPion XL (24 HR) 150 MG TABLET PO SCH (10:18)
[2019-01-04] MEDS: *HR* Metformin 500 MG TABLET PO SCH ×3 (10:18→17:54)
[2019-01-04] MEDS: Cholecalciferol (D-3) 1,000 UNIT TABLET PO SCH (10:18)
[2019-01-04] MEDS: Nicotine 21 MG PATCH.TD24 TD SCH (10:19)
[2019-01-04] MEDS: Fluticasone Propionate Nasal 50 MCG/SPRAY BOTTLE NS SCH (10:20)
[2019-01-04] MEDS: JARDIANCE 25MG PO SCH (20:34)
[2019-01-04] MEDS: Insulin DETEMIR 100 UNIT/ML X5UNITS SQ SCH (20:40)
[2019-01-05] MEDS: Acetaminophen 325 MG TABLET PO PRN ×2 (02:57→13:19)
[2019-01-05] MEDS: *HR* HYDROcodone/Acet 7.5/325 mg TABLET PO PRN ×2 (06:27→16:16)
[2019-01-05] MEDS: tiZANidine 4 MG TABLET PO PRN (06:27)
[2019-01-05] MEDS: *HR* Enoxaparin 30 MG/0.3 ML SYRINGE SQ SCH ×2 (06:27→18:13)
[2019-01-05] MEDS: Insulin LISPRO 300 UNITS/3 ML VIAL SQ SCH ×4 (08:35→20:46)
[2019-01-05] MEDS: Cholecalciferol (D-3) 1,000 UNIT TABLET PO SCH (08:59)
[2019-01-05] MEDS: Vitamin B Complex/Vit C/Vit E 1 EACH TABLET PO SCH (08:59)
[2019-01-05] MEDS: MOMETASONE NS SCH (08:59)
[2019-01-05] MEDS: JARDIANCE 25MG PO SCH (08:59)
[2019-01-05] MEDS: *HR* Metformin 500 MG TABLET PO SCH ×3 (09:00→16:16)
[2019-01-05] MEDS: Loratadine 10 MG TABLET PO SCH (09:00)
[2019-01-05] MEDS: Metoprolol XL (24 HR) Succ 50 MG TAB.ER.24H PO SCH (09:00)
[2019-01-05] MEDS: Bumetanide 1 MG TABLET PO SCH (09:00)
[2019-01-05] MEDS: BuPROPion XL (24 HR) 150 MG TABLET PO SCH (09:01)
[2019-01-05] MEDS: Multivit/Ca/Min/Fe/FA 1 TAB TABLET PO SCH (09:01)
[2019-01-05] MEDS: Nicotine 21 MG PATCH.TD24 TD SCH (09:07)
[2019-01-05] MEDS: Budesonide/Formoterol 160/4.5 1 PUFF INH IH SCH ×2 (10:39→22:05)
[2019-01-05] MEDS: Tiotropium 18 MCG inhalation IH SCH (10:41)
--- NOTE | 2019-01-05 11:38 | Internal Med Progress Note ---
Date of Encounter: 01/05/19 Time of Encounter: 11:22 - Assessment and plan (1) Ankle fracture, bimalleolar, closed Current Visit: Yes Status: Acute Assessment and plan: December 26. Continue PT and OT intervention. Nursing contacted surgeon's office today about her ongoing pain. December 27. She reports follow up with her orthopedic surgeon on 01/08/2019. Qualifiers: Encounter type: subsequent encounter Laterality: left Fracture healing: with routine healing Qualified Code(s): S82.842D - Displaced bimalleolar fracture of left lower leg, subsequent encounter for closed fracture with routine healing (2) Goiter Current Visit: Yes Status: Chronic Assessment and plan: December 26. TSH minimally changed from 10/28/2018 level at 0.168. I told her she could discuss with her PCP referral to endocrinology for further evalu ation/treatment. December 27. Free T4 and T3 levels normal at 1.46 ng/mL and 3.27 pg/ml respectively. (3) Hypertension Current Visit: No Status: Chronic Assessment and plan: December 26. Continue Cozaar and Toprol January 01. Blood pressure well controlled. Continue present Rx. Qualifiers: Hypertension type: essential hypertension Qualified Code(s): I10 - Essential (primary) hypertension (4) COPD (chronic obstructive pulmonary disease) Current Visit: No Status: Chronic Assessment and plan: December 26. Continue oxygen and inhalers Qualifiers: COPD type: unspecified COPD Qualified Code(s): J44.9 - Chronic obstructive pulmonary disease, unspecified (5) Hypokalemia Current Visit: Yes Status: Acute Assessment and plan: December 26. Recheck labs in a.m. December 27. Potassium level normal at 3.6. Continue supplemental potassium. December 29. Recheck labs in a.m. January 01. Potassium normal at 4.0. (6) Diabetes mellitus Current Visit: No Status: Chronic Assessment and plan: December 26. Hemoglobin A1c was 9.3% on 12/22/2018. Continue Levemir and Accu- Cheks with SSI. December 29. Accu-Chek show significant fluctuation. Continue Levemir and SSI. Qualifiers: Diabetes mellitus type: type 2 Diabetes mellitus intermediate accountant insulin use: unspecified intermediate accountant insulin use status Diabetes mellitus complication status: with unspecified complications Qualified Code(s): E11.8 - Type 2 diabetes mellitus with unspecified complications - Subjective Interval history: December 26. She has no new complaints. She has ongoing pain in the left ankle. December 27. She has no new complaints. She states she has fluctuating pain in her left ankle. Overall she thinks it has lessened. December 27. She has no new complaints. She states her ankle pain has lessened. She was ordered decongestant nasal spray yesterday but states it has not improved her sinus congestion. January 01. She has no new complaints. She states her ankle pain has lessened overall. January 03. She has no new complaints. January 05. She has no new complaints. - Constitutional Vitals: Temp Pulse Resp BP Pulse Ox 98.0 F 65 18 122/62 94 01/05/19 07:46 01/05/19 07:46 01/05/19 07:46 01/05/19 07:46 01/05/19 08:41 Exam: She is sitting in a chair at bedside resting comfortably. Her affect is bright and cheerful. I reviewed her medications and lab results. Internal Medicine: Result - Labs CBC & Chem 7: 12/31/18 06:13 12/31/18 06:13 - ABG Interpretation ABG results: PT/INR, D-dimer PT 11.6 Seconds (9.4-12.1) 12/25/18 04:50 Consult Discharge Plan - Plan Instructions: Open Reduction Internal Fixation (DC) Referrals: Juan Hernandez MD [Primary Care Provider] - 1 week
[2019-01-05] MEDS: Insulin DETEMIR 100 UNIT/ML X5UNITS SQ SCH (20:49)
[2019-01-06] MEDS: Acetaminophen 325 MG TABLET PO PRN ×3 (00:16→21:55)
[2019-01-06] MEDS: tiZANidine 4 MG TABLET PO PRN ×2 (00:18→21:55)
[2019-01-06] MEDS: *HR* HYDROcodone/Acet 7.5/325 mg TABLET PO PRN ×3 (01:17→17:44)
[2019-01-06] MEDS: *HR* Enoxaparin 30 MG/0.3 ML SYRINGE SQ SCH ×2 (08:24→17:44)
[2019-01-06] MEDS: Nicotine 21 MG PATCH.TD24 TD SCH (08:27)
[2019-01-06] MEDS: Insulin LISPRO 300 UNITS/3 ML VIAL SQ SCH ×5 (08:27→22:12)
[2019-01-06] MEDS: JARDIANCE 25MG PO SCH (08:29)
[2019-01-06] MEDS: MOMETASONE NS SCH (08:29)
[2019-01-06] MEDS: Cholecalciferol (D-3) 1,000 UNIT TABLET PO SCH (08:33)
[2019-01-06] MEDS: Bumetanide 1 MG TABLET PO SCH (08:33)
[2019-01-06] MEDS: Multivit/Ca/Min/Fe/FA 1 TAB TABLET PO SCH (08:33)
[2019-01-06] MEDS: BuPROPion XL (24 HR) 150 MG TABLET PO SCH (08:33)
[2019-01-06] MEDS: Loratadine 10 MG TABLET PO SCH (08:34)
[2019-01-06] MEDS: Metoprolol XL (24 HR) Succ 50 MG TAB.ER.24H PO SCH (08:34)
[2019-01-06] MEDS: Vitamin B Complex/Vit C/Vit E 1 EACH TABLET PO SCH (08:34)
[2019-01-06] MEDS: *HR* Metformin 500 MG TABLET PO SCH ×3 (08:34→16:09)
[2019-01-06] MEDS: Tiotropium 18 MCG inhalation IH SCH (10:08)
[2019-01-06] MEDS: Budesonide/Formoterol 160/4.5 1 PUFF INH IH SCH ×2 (10:09→21:29)
[2019-01-06] MEDS: BYDUREON BCISE 2 MG SQ SCH (12:11)
[2019-01-06] MEDS: DICLOFENAC TOPICAL TP PRN (17:56)
[2019-01-06] MEDS: Insulin DETEMIR 100 UNIT/ML X5UNITS SQ SCH (21:55)
[2019-01-07] MEDS: *HR* Enoxaparin 30 MG/0.3 ML SYRINGE SQ SCH ×2 (05:31→17:54)
[2019-01-07] MEDS: *HR* HYDROcodone/Acet 7.5/325 mg TABLET PO PRN ×3 (05:31→22:19)
[2019-01-07] MEDS: MOMETASONE NS SCH (09:09)
[2019-01-07] MEDS: JARDIANCE 25MG PO SCH (09:09)
[2019-01-07] MEDS: Cholecalciferol (D-3) 1,000 UNIT TABLET PO SCH (09:13)
[2019-01-07] MEDS: Metoprolol XL (24 HR) Succ 50 MG TAB.ER.24H PO SCH (09:13)
[2019-01-07] MEDS: Multivit/Ca/Min/Fe/FA 1 TAB TABLET PO SCH (09:13)
[2019-01-07] MEDS: BuPROPion XL (24 HR) 150 MG TABLET PO SCH (09:14)
[2019-01-07] MEDS: Loratadine 10 MG TABLET PO SCH (09:14)
[2019-01-07] MEDS: Bumetanide 1 MG TABLET PO SCH (09:14)
[2019-01-07] MEDS: Nicotine 21 MG PATCH.TD24 TD SCH (09:14)
[2019-01-07] MEDS: Vitamin B Complex/Vit C/Vit E 1 EACH TABLET PO SCH (09:14)
[2019-01-07] MEDS: *HR* Metformin 500 MG TABLET PO SCH ×3 (09:14→17:53)
[2019-01-07] MEDS: Insulin LISPRO 300 UNITS/3 ML VIAL SQ SCH ×4 (09:16→22:16)
[2019-01-07] MEDS: Acetaminophen 325 MG TABLET PO PRN ×2 (09:22→17:54)
[2019-01-07] MEDS: DICLOFENAC TOPICAL TP PRN (09:29)
[2019-01-07] MEDS: Tiotropium 18 MCG inhalation IH SCH (11:11)
[2019-01-07] MEDS: Budesonide/Formoterol 160/4.5 1 PUFF INH IH SCH ×2 (11:11→21:52)
[2019-01-07] MEDS: Insulin DETEMIR 100 UNIT/ML X5UNITS SQ SCH (22:08)
[2019-01-07] MEDS: tiZANidine 4 MG TABLET PO PRN (22:19)
[2019-01-08] MEDS: Acetaminophen 325 MG TABLET PO PRN ×2 (00:59→17:12)
[2019-01-08] MEDS: Metoprolol XL (24 HR) Succ 50 MG TAB.ER.24H PO SCH (07:02)
[2019-01-08] MEDS: *HR* Metformin 500 MG TABLET PO SCH ×3 (07:02→17:05)
[2019-01-08] MEDS: tiZANidine 4 MG TABLET PO PRN ×2 (07:02→21:33)
[2019-01-08] MEDS: *HR* HYDROcodone/Acet 7.5/325 mg TABLET PO PRN ×3 (07:02→21:33)
[2019-01-08] MEDS: *HR* Enoxaparin 30 MG/0.3 ML SYRINGE SQ SCH ×2 (07:42→17:05)
[2019-01-08] MEDS: Insulin LISPRO 300 UNITS/3 ML VIAL SQ SCH ×4 (07:46→19:47)
[2019-01-08] MEDS: Tiotropium 18 MCG inhalation IH SCH (10:04)
[2019-01-08] MEDS: Budesonide/Formoterol 160/4.5 1 PUFF INH IH SCH ×2 (10:04→22:57)
[2019-01-08] MEDS: BuPROPion XL (24 HR) 150 MG TABLET PO SCH (11:53)
[2019-01-08] MEDS: Multivit/Ca/Min/Fe/FA 1 TAB TABLET PO SCH (11:53)
[2019-01-08] MEDS: Cholecalciferol (D-3) 1,000 UNIT TABLET PO SCH (11:53)
[2019-01-08] MEDS: Vitamin B Complex/Vit C/Vit E 1 EACH TABLET PO SCH (11:53)
[2019-01-08] MEDS: Bumetanide 1 MG TABLET PO SCH (11:53)
[2019-01-08] MEDS: Loratadine 10 MG TABLET PO SCH (11:54)
[2019-01-08] MEDS: Nicotine 21 MG PATCH.TD24 TD SCH (11:58)
[2019-01-08] MEDS: JARDIANCE 25MG PO SCH (11:59)
[2019-01-08] MEDS: MOMETASONE NS SCH (11:59)
[2019-01-08] MEDS: DICLOFENAC TOPICAL TP PRN (18:40)
--- NOTE | 2019-01-08 19:37 | Internal Med Progress Note ---
Date of Encounter: 01/08/19 Time of Encounter: 19:25 - Assessment and plan (1) Ankle fracture, bimalleolar, closed Current Visit: Yes Status: Acute Assessment and plan: December 26. Continue PT and OT intervention. Nursing contacted surgeon's office today about her ongoing pain. December 27. She reports follow up with her orthopedic surgeon on 01/08/2019. January 08. Continue PT and OT intervention. Will order Lidoderm patches and BenGay for pain control. Qualifiers: Encounter type: subsequent encounter Laterality: left Fracture healing: with routine healing Qualified Code(s): S82.842D - Displaced bimalleolar frac ture of left lower leg, subsequent encounter for closed fracture with routine healing (2) Goiter Current Visit: Yes Status: Chronic Assessment and plan: December 26. TSH minimally changed from 10/28/2018 level at 0.168. I told her she could discuss with her PCP referral to endocrinology for further mikaela luation/treatment. December 27. Free T4 and T3 levels normal at 1.46 ng/mL and 3.27 pg/ml respectivel y. (3) Hypertension Current Visit: No Status: Chronic Assessment and plan: December 26. Continue Cozaar and Toprol January 01. Blood pressure well controlled. Continue present Rx. Qualifiers: Hypertension type: essential hypertension Qualified Code(s): I10 - Essential (primary) hypertension (4) COPD (chronic obstructive pulmonary disease) Current Visit: No Status: Chronic Assessment and plan: December 26. Continue oxygen and inhalers Qualifiers: COPD type: unspecified COPD Qualified Code(s): J44.9 - Chronic obstructive pulmonary disease, unspecified (5) Hypokalemia Current Visit: Yes Status: Acute Assessment and plan: December 26. Recheck labs in a.m. December 27. Potassium level normal at 3.6. Continue supplemental potassium. December 29. Recheck labs in a.m. January 01. Potassium normal at 4.0. (6) Diabetes mellitus Current Visit: No Status: Chronic Assessment and plan: December 26. Hemoglobin A1c was 9.3% on 12/22/2018. Continue Levemir and Accu- Cheks with SSI. December 29. Accu-Chek show significant fluctuation. Continue Levemir and SSI. Qualifiers: Diabetes mellitus type: type 2 Diabetes mellitus penitentiary insulin use: unspecified penitentiary insulin use status Diabetes mellitus complication status: with unspecified complications Qualified Code(s): E11.8 - Type 2 diabetes mellitus with unspecified complications - Subjective Interval history: December 26. She has no new complaints. She has ongoing pain in the left ankle. December 27. She has no new complaints. She states she has fluctuating pain in her left ankle. Overall she thinks it has lessened. December 27. She has no new complaints. She states her ankle pain has lessened. She was ordered decongestant nasal spray yesterday but states it has not improved her sinus congestion. January 01. She has no new complaints. She states her ankle pain has lessened overall. January 03. She has no new complaints. January 05. She has no new complaints. January 08. She complains of pain in her knees. She saw the orthopedist today who told her she would be nonweightbearing for at least 4 more weeks. - Constitutional Vitals: Temp Pulse Resp BP Pulse Ox 98.3 F 75 16 115/67 91 01/08/19 18:46 01/08/19 18:46 01/08/19 18:46 01/08/19 18:46 01/08/19 18:46 Exam: She is resting comfortably in bed and appears in no acute distress. Her affect is overall cheerful. I reviewed her medications and lab results. Internal Medicine: Result - Labs CBC & Chem 7: 12/31/18 06:13 12/31/18 06:13 - ABG Interpretation ABG results: PT/INR, D-dimer PT 11.6 Seconds (9.4-12.1) 12/25/18 04:50 Consult Discharge Plan - Plan Instructions: Open Reduction Internal Fixation (DC) Referrals: Juan Hernandez MD [Primary Care Provider] - 1 week
[2019-01-08] MEDS: Insulin DETEMIR 100 UNIT/ML X5UNITS SQ SCH (19:47)
[2019-01-08] MEDS: Methyl Salicylate/Menthol 28 GM TUBE TP SCH (21:27)
[2019-01-09] MEDS: Acetaminophen 325 MG TABLET PO PRN (02:21)
[2019-01-09] MEDS: *HR* Enoxaparin 30 MG/0.3 ML SYRINGE SQ SCH ×2 (06:38→17:02)
[2019-01-09] MEDS: *HR* HYDROcodone/Acet 7.5/325 mg TABLET PO PRN ×3 (06:39→22:23)
[2019-01-09 06:55] LABS: Basophils # 0.1 K/mcL (0.0-0.2); Basophils % 0.6 %; Eosinophils # 0.2 K/mcL (0.0-0.6); Eosinophils % 2.2 %; Hematocrit 43.6 % (35.3-44.9); Hemoglobin 14.1 g/dL (11.5-15.4); Immature Granulocytes % 0.6 % (0-4); Lymphocytes # 3.7 K/mcL (0.6-4.6); Lymphocytes % 38.4 %; Mean Corpuscular HGB Conc 32.3 g/dL (31.6-35.5); Mean Corpuscular Hemoglobin 31.4 pg (28.0-33.3); Mean Corpuscular Volume 97.1 fL (83.0-100.0); Mean Platelet Volume 9.4 fL (9.4-12.4); Monocytes # 0.7 K/mcL (0.0-1.3); Monocytes % 7.7 %; Neutrophils # 4.8 K/mcL (1.6-8.9); Platelet Count 439 K/mcL (140-400); Red Blood Count 4.49 M/mcL (3.82-4.97); Red Cell Distribution Width 13.3 % (11.5-14.5); Segmented Neutrophils % 50.5 %
[2019-01-09 07:14] LABS: BUN/Creatinine Ratio 23 (6-26); Blood Urea Nitrogen 15 mg/dL (8-23); Calcium 9.3 mg/dL (8.6-10.3); Carbon Dioxide 34 mEq/L (23-29); Chloride 101 mEq/L (98-107); Glucose 81 mg/dL (70-105); Magnesium 2.1 mg/dL (1.6-2.6); Osmolality,Calculated 288 (280-300); Potassium 4.5 mEq/L (3.5-5.1); Sodium 139 mEq/L (136-145); eGFR For Non-African Americans > 60 (> 60)
[2019-01-09] MEDS: Insulin LISPRO 300 UNITS/3 ML VIAL SQ SCH ×4 (08:50→22:22)
[2019-01-09] MEDS: Cholecalciferol (D-3) 1,000 UNIT TABLET PO SCH (08:50)
[2019-01-09] MEDS: Metoprolol XL (24 HR) Succ 50 MG TAB.ER.24H PO SCH (08:50)
[2019-01-09] MEDS: *HR* Metformin 500 MG TABLET PO SCH ×3 (08:50→17:02)
[2019-01-09] MEDS: BuPROPion XL (24 HR) 150 MG TABLET PO SCH (08:51)
[2019-01-09] MEDS: Bumetanide 1 MG TABLET PO SCH (08:51)
[2019-01-09] MEDS: Vitamin B Complex/Vit C/Vit E 1 EACH TABLET PO SCH (08:51)
[2019-01-09] MEDS: Loratadine 10 MG TABLET PO SCH (08:51)
[2019-01-09] MEDS: Nicotine 21 MG PATCH.TD24 TD SCH (08:51)
[2019-01-09] MEDS: Multivit/Ca/Min/Fe/FA 1 TAB TABLET PO SCH (08:51)
[2019-01-09] MEDS: MOMETASONE NS SCH (08:52)
[2019-01-09] MEDS: JARDIANCE 25MG PO SCH (08:52)
[2019-01-09] MEDS: Budesonide/Formoterol 160/4.5 1 PUFF INH IH SCH ×2 (09:25→22:31)
[2019-01-09] MEDS: Tiotropium 18 MCG inhalation IH SCH (09:27)
[2019-01-09] MEDS: DiphenhydraMINE CREAM 28.4 GM TUBE TP PRN (14:11)
[2019-01-09] MEDS: Methyl Salicylate/Menthol 28 GM TUBE TP SCH (22:22)
[2019-01-09] MEDS: tiZANidine 4 MG TABLET PO PRN (22:24)
[2019-01-09] MEDS: Insulin DETEMIR 100 UNIT/ML X5UNITS SQ SCH (23:14)
[2019-01-10] MEDS: Acetaminophen 325 MG TABLET PO PRN (04:40)
[2019-01-10] MEDS: Tiotropium 18 MCG inhalation IH SCH (09:51)
[2019-01-10] MEDS: Budesonide/Formoterol 160/4.5 1 PUFF INH IH SCH ×2 (09:51→22:36)
[2019-01-10] MEDS: *HR* Enoxaparin 30 MG/0.3 ML SYRINGE SQ SCH ×2 (11:01→17:21)
[2019-01-10] MEDS: Metoprolol XL (24 HR) Succ 50 MG TAB.ER.24H PO SCH (11:02)
[2019-01-10] MEDS: JARDIANCE 25MG PO SCH (11:02)
[2019-01-10] MEDS: Cholecalciferol (D-3) 1,000 UNIT TABLET PO SCH (11:02)
[2019-01-10] MEDS: BuPROPion XL (24 HR) 150 MG TABLET PO SCH (11:02)
[2019-01-10] MEDS: Bumetanide 1 MG TABLET PO SCH (11:02)
[2019-01-10] MEDS: Nicotine 21 MG PATCH.TD24 TD SCH (11:02)
[2019-01-10] MEDS: *HR* Metformin 500 MG TABLET PO SCH ×3 (11:03→17:22)
[2019-01-10] MEDS: Multivit/Ca/Min/Fe/FA 1 TAB TABLET PO SCH (11:03)
[2019-01-10] MEDS: Loratadine 10 MG TABLET PO SCH (11:03)
[2019-01-10] MEDS: *HR* HYDROcodone/Acet 7.5/325 mg TABLET PO PRN ×2 (11:03→22:11)
[2019-01-10] MEDS: Vitamin B Complex/Vit C/Vit E 1 EACH TABLET PO SCH (11:03)
[2019-01-10] MEDS: Insulin LISPRO 300 UNITS/3 ML VIAL SQ SCH ×4 (11:06→22:10)
[2019-01-10] MEDS: MOMETASONE NS SCH (11:09)
[2019-01-10] MEDS: Insulin DETEMIR 100 UNIT/ML X5UNITS SQ SCH (22:10)
[2019-01-10] MEDS: Methyl Salicylate/Menthol 28 GM TUBE TP SCH (22:10)
[2019-01-10] MEDS: tiZANidine 4 MG TABLET PO PRN (22:11)
[2019-01-11] MEDS: Acetaminophen 325 MG TABLET PO PRN ×2 (04:15→11:55)
[2019-01-11] MEDS: Bumetanide 1 MG TABLET PO SCH (08:44)
[2019-01-11] MEDS: BuPROPion XL (24 HR) 150 MG TABLET PO SCH (08:44)
[2019-01-11] MEDS: Multivit/Ca/Min/Fe/FA 1 TAB TABLET PO SCH (08:45)
[2019-01-11] MEDS: *HR* HYDROcodone/Acet 7.5/325 mg TABLET PO PRN ×2 (08:45→14:49)
[2019-01-11] MEDS: Loratadine 10 MG TABLET PO SCH (08:45)
[2019-01-11] MEDS: Cholecalciferol (D-3) 1,000 UNIT TABLET PO SCH (08:45)
[2019-01-11] MEDS: *HR* Metformin 500 MG TABLET PO SCH ×3 (08:45→17:44)
[2019-01-11] MEDS: Vitamin B Complex/Vit C/Vit E 1 EACH TABLET PO SCH (08:45)
[2019-01-11] MEDS: Metoprolol XL (24 HR) Succ 50 MG TAB.ER.24H PO SCH (08:46)
[2019-01-11] MEDS: Nicotine 21 MG PATCH.TD24 TD SCH (08:57)
[2019-01-11] MEDS: Insulin LISPRO 300 UNITS/3 ML VIAL SQ SCH ×4 (08:57→21:25)
[2019-01-11] MEDS: JARDIANCE 25MG PO SCH (08:57)
[2019-01-11] MEDS: *HR* Enoxaparin 30 MG/0.3 ML SYRINGE SQ SCH ×2 (08:57→17:44)
[2019-01-11] MEDS: MOMETASONE NS SCH (08:57)
[2019-01-11] MEDS: tiZANidine 4 MG TABLET PO PRN (11:55)
[2019-01-11] MEDS: Budesonide/Formoterol 160/4.5 1 PUFF INH IH SCH ×2 (12:29→23:10)
[2019-01-11] MEDS: Tiotropium 18 MCG inhalation IH SCH (12:30)
--- NOTE | 2019-01-11 14:35 | Internal Med Progress Note ---
Date of Encounter: 01/11/19 Time of Encounter: 14:25 - Assessment and plan (1) Ankle fracture, bimalleolar, closed Current Visit: Yes Status: Acute Assessment and plan: December 26. Continue PT and OT intervention. Nursing contacted surgeon's office today about her ongoing pain. December 27. She reports follow up with her orthopedic surgeon on 01/08/2019. January 08. Continue PT and OT intervention. Will order Lidoderm patches and BenGay for pain control. Qualifiers: Encounter type: subsequent encounter Laterality: left Fracture healing: with routine healing Qualified Code(s): S82.842D - Displaced bimalleolar frac ture of left lower leg, subsequent encounter for closed fracture with routine healing (2) Goiter Current Visit: Yes Status: Chronic Assessment and plan: December 26. TSH minimally changed from 10/28/2018 level at 0.168. I told her she could discuss with her PCP referral to endocrinology for further mikaela luation/treatment. December 27. Free T4 and T3 levels normal at 1.46 ng/mL and 3.27 pg/ml respectivel y. (3) Hypertension Current Visit: No Status: Chronic Assessment and plan: December 26. Continue Cozaar and Toprol January 01. Blood pressure well controlled. Continue present Rx. Qualifiers: Hypertension type: essential hypertension Qualified Code(s): I10 - Essential (primary) hypertension (4) COPD (chronic obstructive pulmonary disease) Current Visit: No Status: Chronic Assessment and plan: December 26. Continue oxygen and inhalers Qualifiers: COPD type: unspecified COPD Qualified Code(s): J44.9 - Chronic obstructive pulmonary disease, unspecified (5) Hypokalemia Current Visit: Yes Status: Acute Assessment and plan: December 26. Recheck labs in a.m. December 27. Potassium level normal at 3.6. Continue supplemental potassium. December 29. Recheck labs in a.m. January 01. Potassium normal at 4.0. January 11. Potassium level was 4.5 on 01/09/2019. Decrease supplemental potassium dose to 10 mEq daily. (6) Diabetes mellitus Current Visit: No Status: Chronic Assessment and plan: December 26. Hemoglobin A1c was 9.3% on 12/22/2018. Continue Levemir and Accu- Cheks with SSI. December 29. Accu-Chek show significant fluctuation. Continue Levemir and SSI. Qualifiers: Diabetes mellitus type: type 2 Diabetes mellitus termite renewal inspector insulin use: unspecified termite renewal inspector insulin use status Diabetes mellitus complication status: with unspecified complications Qualified Code(s): E11.8 - Type 2 diabetes mellitus with unspecified complications (7) Dyspepsia Current Visit: Yes Status: Acute Assessment and plan: January 11. She requested Pepto-Bismol prn. - Subjective Interval history: December 26. She has no new complaints. She has ongoing pain in the left ankle. December 27. She has no new complaints. She states she has fluctuating pain in her left ankle. Overall she thinks it has lessened. December 27. She has no new complaints. She states her ankle pain has lessened. She was ordered decongestant nasal spray yesterday but states it has not improved her sinus congestion. January 01. She has no new complaints. She states her ankle pain has lessened ov era. January 03. She has no new complaints. January 05. She has no new complaints. January 08. She complains of pain in her knees. She saw the orthopedist today who told her she would be nonweightbearing for at least 4 more weeks. January 11. She has no new complaints except occasional "upset stomach". - Constitutional Vitals: Temp Pulse Resp BP Pulse Ox 98.2 F 68 17 121/65 99 01/11/19 07:23 01/11/19 07:23 01/11/19 07:23 01/11/19 07:23 01/11/19 09:06 Exam: She is resting comfortably in bed and appears in no acute distress. The left ankle incision is clean and dry and without drainage. Her affect is bright and cheerful. I reviewed her medications and lab results. Internal Medicine: Result - Labs CBC & Chem 7: 01/09/19 06:20 01/09/19 06:20 - ABG Interpretation ABG results: PT/INR, D-dimer PT 11.6 Seconds (9.4-12.1) 12/25/18 04:50 Consult Discharge Plan - Plan Instructions: Open Reduction Internal Fixation (DC) Referrals: Juan Hernandez MD [Primary Care Provider] - 1 week (February 05 @10 with in [place] ([address]))
[2019-01-11] MEDS ORDERED: Bismuth Subsalicylate 120 ML ORAL SUSPENSION PO PRN (14:38)
[2019-01-11] MEDS: DiphenhydraMINE CREAM 28.4 GM TUBE TP PRN (17:44)
[2019-01-11] MEDS: Insulin DETEMIR 100 UNIT/ML X5UNITS SQ SCH (21:25)
[2019-01-11] MEDS: Methyl Salicylate/Menthol 28 GM TUBE TP SCH (21:27)
[2019-01-12] MEDS: *HR* Enoxaparin 30 MG/0.3 ML SYRINGE SQ SCH (05:46)
[2019-01-12] MEDS: Acetaminophen 325 MG TABLET PO PRN (05:50)
[2019-01-12 07:04] VITALS: BP 130/76
[2019-01-12] MEDS: Insulin LISPRO 300 UNITS/3 ML VIAL SQ SCH ×2 (07:47→11:32)
[2019-01-12] MEDS: Vitamin B Complex/Vit C/Vit E 1 EACH TABLET PO SCH (08:00)
[2019-01-12] MEDS: Cholecalciferol (D-3) 1,000 UNIT TABLET PO SCH (08:01)
[2019-01-12] MEDS: *HR* Metformin 500 MG TABLET PO SCH ×2 (08:01→11:36)
[2019-01-12] MEDS: Loratadine 10 MG TABLET PO SCH (08:01)
[2019-01-12] MEDS: Multivit/Ca/Min/Fe/FA 1 TAB TABLET PO SCH (08:02)
[2019-01-12] MEDS: BuPROPion XL (24 HR) 150 MG TABLET PO SCH (08:02)
[2019-01-12] MEDS: Nicotine 21 MG PATCH.TD24 TD SCH (08:03)
[2019-01-12] MEDS: Bumetanide 1 MG TABLET PO SCH (08:08)
[2019-01-12] MEDS: Metoprolol XL (24 HR) Succ 50 MG TAB.ER.24H PO SCH (08:09)
[2019-01-12] MEDS: JARDIANCE 25MG PO SCH (08:13)
[2019-01-12] MEDS: MOMETASONE NS SCH (08:13)
[2019-01-12] MEDS: DiphenhydraMINE CREAM 28.4 GM TUBE TP PRN (09:44)
[2019-01-12] MEDS: tiZANidine 4 MG TABLET PO PRN (09:55)
[2019-01-12] MEDS: *HR* HYDROcodone/Acet 7.5/325 mg TABLET PO PRN (09:55)
--- NOTE | 2019-01-12 10:21 | Discharge Summary ---
Date of Encounter: 01/12/19 Time of Encounter: 10:08 - Discharge Diagnosis (1) Ankle fracture, bimalleolar, closed Priority: Primary Status: Acute Qualifiers: Encounter type: subsequent encounter Laterality: left Fracture healing: with routine healing Qualified Code(s): S82.842D - Displaced bimalleolar fracture of left lower leg, subsequent encounter for closed fracture with routine healing (2) Goiter Priority: Secondary Status: Chronic (3) Hypertension Priority: Secondary Status: Chronic Qualifiers: Hypertension type: essential hypertension Qualified Code(s): I10 - Essential (primary) hypertension (4) COPD (chronic obstructive pulmonary disease) Priority: Secondary Status: Chronic Qualifiers: COPD type: unspecified COPD Qualified Code(s): J44.9 - Chronic obstructive pulmonary disease, unspecified (5) Hypokalemia Priority: Secondary Status: Acute (6) Diabetes mellitus Priority: Secondary Status: Chronic Qualifiers: Diabetes mellitus type: type 2 Diabetes mellitus usp insulin use: unspecified usp insulin use status Diabetes mellitus complication status: with unspecified complications Qualified Code(s): E11.8 - Type 2 diabetes mellitus with unspecified complications (7) Dyspepsia Priority: Secondary Status: Acute Hospital course: Ms. Barnett is a 68 year old female who sustained left ankle fracture and underwent repair at [facility]. Her postop course was unremarkable and she was discharged to [facility] swing bed for rehabilitation therapy prior to returning to independent living. Initial orders were written by the discharging physicians at [facility]. I saw her on December 25 and performed the history and physical. She had physical therapy and occupational therapy evaluations with ongoing intervention. She made satisfactory progress. She had follow-up appointment with her orthopedist on 01/08/2019. She was told she would need to be nonweightbearing for at least an additional 4 weeks. It was felt she would be best served by transitioning to a SNF for ongoing care needs. Arrangements were complete on January 12 for her to go to [facility]. TSH returned suppressed at 0.168. Free T4 and T3 levels were normal. Referral to endocrinology for further evaluation/treatment can be done after her SNF stay. - Time Spent with Patient Total time spent providing and/or coordinating discharge services: - Discharge Medications Prescriptions: New HYDROcodone/Acet 7.5/325 mg [Bradley 7.5-325 mg] 1 tab PO Q6HR PRN 7 Days #28 tablet PRN Reason: moderate to severe pain Bismuth Subsalicylate [PEPTO-BISMOL (262mg/15mL) Susp] 15 ml PO QID PRN mls PRN Reason: See Comments Budesonide/Formoterol 160/4.5 [Symbicort 160/4.5] 2 puff IH BIDR inh Lidocaine Patch [Lidoderm 5% patch] 1 each TP HS adh..patch Methyl Salicylate/Menthol [Bengay] 1 appl TP HS tube Nicotine Patch [Nicoderm] 21 mg TD DAILY patch.td24 Potassium Chloride 10 meq PO DAILY tab.er.prt Continue Alendronate Sodium [Fosamax] 70 mg PO SA Cholecalciferol (Vitamin D3) [Vitamin D3] 1,000 unit PO DAILY Exenatide Microspheres [Bydureon Bcise] 2 mg SQ SA Metformin HCl [Glucophage Xr] 750 mg PO BID Metoprolol Succinate 100 mg PO DAILY Tiotropium Reliance [Spiriva Respimat] 2 puff IH QAM Folic Acid/Vit Bcomp,C [ Super Vitamin B Complex] 400 mcg PO DAILY Mv-Mn/Folic Acid/Calcium/Vit K [Women's 50 Plus Multivit Tab] 1 tab PO DAILY Insulin Glargine,Hum.rec.anlog [Lantus Solostar] 10 unit SQ HS Insulin ASPART [Novolog Flexpen] 5 - 15 unit SQ BIDWM Diclofenac Sodium 4 gm TP QID PRN PRN Reason: Pain Insulin LISPRO [Humalog Kwikpen U-100] 5 - 15 unit SQ BIDWM Nitroglycerin [Nitrostat] 0.4 mg SL Q5M PRN PRN Reason: Chest Pain Bumetanide 2 mg PO DAILY Enoxaparin [Lovenox] 30 mg SQ Q12HCO syringe Sennosides/Docusate Sodium [Senna Plus] 2 each PO BID tablet Duloxetine HCl [Cymbalta] 60 mg PO DAILY Fexofenadine HCl 180 mg PO DAILY Simvastatin [Zocor] 20 mg PO QPM Clopidogrel [Plavix] 75 mg PO Q72H BuPROPion XL (24 HR) [Wellbutrin Xl] 150 mg PO DAILY Pantoprazole Sodium [Protonix] 40 mg PO DAILY Empagliflozin [Jardiance] 25 mg PO DAILY Montelukast [Singulair] 10 mg PO DAILY Albuterol Sulfate [Ventolin Hfa] 2 puff IH Q4H PRN PRN Reason: Shortness Of Breath Losartan Potassium [Cozaar] 75 mg PO DAILY Tizanidine HCl [Zanaflex] 4 mg PO TID PRN PRN Reason: Muscle Spasm Mometasone Furoate [Nasonex] 2 spray NS DAILY Home Medications: BuPROPion XL (24 HR) [Wellbutrin Xl] 150 mg PO DAILY 01/01/16 [History] Clopidogrel [Plavix] 75 mg PO Q72H 01/01/16 [History] Duloxetine HCl [Cymbalta] 60 mg PO DAILY 01/01/16 [History] Fexofenadine HCl 180 mg PO DAILY 01/01/16 [History] Simvastatin [Zocor] 20 mg PO QPM 01/01/16 [History] Pantoprazole Sodium [Protonix] 40 mg PO DAILY 04/08/16 [History] Alendronate Sodium [Fosamax] 70 mg PO SA 07/30/16 [History] Albuterol Sulfate [Ventolin Hfa] 2 puff IH Q4H PRN 11/11/17 [History] Empagliflozin [Jardiance] 25 mg PO DAILY 11/11/17 [History] Losartan Potassium [Cozaar] 75 mg PO DAILY 11/11/17 [History] Montelukast [Singulair] 10 mg PO DAILY 11/11/17 [History] Tizanidine HCl [Zanaflex] 4 mg PO TID PRN 11/11/17 [History] Bumetanide 2 mg PO DAILY 12/21/18 [History] Cholecalciferol (Vitamin D3) [Vitamin D3] 1,000 unit PO DAILY 12/21/18 [History] Diclofenac Sodium 4 gm TP QID PRN 12/21/18 [History] Exenatide Microspheres [Bydureon Bcise] 2 mg SQ SA 12/21/18 [History] Folic Acid/Vit Bcomp,C [Hm Super Vitamin B Complex] 400 mcg PO DAILY 12/21/18 [History] Insulin ASPART [Novolog Flexpen] 5 - 15 unit SQ BIDWM 12/21/18 [History] Insulin Glargine,Hum.rec.anlog [Lantus Solostar] 10 unit SQ HS 12/21/18 [History] Insulin LISPRO [Humalog Kwikpen U-100] 5 - 15 unit SQ BIDWM 12/21/18 [History] Metformin HCl [Glucophage Xr] 750 mg PO BID 12/21/18 [History] Metoprolol Succinate 100 mg PO DAILY 12/21/18 [History] Mometasone Furoate [Nasonex] 2 spray NS DAILY 12/21/18 [History] Mv-Mn/Folic Acid/Calcium/Vit K [Women's 50 Plus Multivit Tab] 1 tab PO DAILY 12/21/18 [History] Nitroglycerin [Nitrostat] 0.4 mg SL Q5M PRN 12/21/18 [History] Tiotropium Reliance [Spiriva Respimat] 2 puff IH QAM 12/21/18 [History] Enoxaparin [Lovenox] 30 mg SQ Q12HCO syringe 12/24/18 [Rx] Sennosides/Docusate Sodium [Senna Plus] 2 each PO BID tablet 12/24/18 [Rx] Bismuth Subsalicylate [PEPTO-BISMOL (262mg/15mL) Susp] 15 ml PO QID PRN mls 01/12/19 [Rx] Budesonide/Formoterol 160/4.5 [Symbicort 160/4.5] 2 puff IH BIDR inh 01/12/19 [Rx] HYDROcodone/Acet 7.5/325 mg [Bradley 7.5-325 mg] 1 tab PO Q6HR PRN 7 Days #28 tablet 01/12/19 [Rx] Lidocaine Patch [Lidoderm 5% patch] 1 each TP HS adh..patch 01/12/19 [Rx] Methyl Salicylate/Menthol [Bengay] 1 appl TP HS tube 01/12/19 [Rx] Nicotine Patch [Nicoderm] 21 mg TD DAILY patch.td24 01/12/19 [Rx] Potassium Chloride 10 meq PO DAILY tab.er.prt 01/12/19 [Rx] Allergies/Adverse Reactions: Allergy/AdvReac Type Severity Reaction Status Date / Time alprazolam [From Xanax] Allergy See Verified 12/21/18 05:33 Comments gabapentin [From Neurontin] Allergy Dizziness Verified 12/21/18 05:33 glycerin Allergy Hives Verified 12/21/18 05:33 haloperidol [From Haldol] Allergy See Verified 12/21/18 05:33 Comments latex Allergy Blister Verified 12/21/18 05:33 lisinopril Allergy Cough Verified 12/21/18 05:33 pregabalin [From Lyrica] Allergy Dizziness Verified 12/21/18 05:33 oxycodone [From Percocet] AdvReac See Verified 12/21/18 05:33 Comments Date of admission: 12/24/18 12:44 Primary care physician: Juan Hernandez MD Consults: 12/24/18 13:34 Consult to Occupational Therapy [CONS] Routine Comment: eval, develop, implement POC Reason for Consult: eval, develop, implement POC strict nonweightbearing of the left lower extremity. Does patient have active BEDREST order?: No Is patient medically & hemodynamically stable?: Yes Consult to Physical Therapy [CONS] Routine Comment: eval, develop, implement POC Reason for Consult: eval, develop, implement POC strict nonweightbearing of the left lower extremity. Does patient have active BEDREST order?: No Is patient medically & hemodynamically stable?: Yes Consult to Orthopedic Technician [CONS] Routine Reason for SW Consult: may need HH upon discharge - Constitutional Vitals: Temp Pulse Resp BP Pulse Ox 97.7 F 65 18 130/76 95 01/12/19 06:59 01/12/19 06:59 01/12/19 06:59 01/12/19 06:59 01/12/19 06:59 - Patient Status Disposition: Transfer SNF - Discharge Instructions Instructions: Open Reduction Internal Fixation (DC) - Diet and Activity Activity: as per physical therapy Diet: diabetic diet
--- NOTE | 2019-01-12 10:50 | Physician Discharge Referral ---
ExtendedCare Referral Info Transfer To: [facility] Provider in Charge: Antoine Provider in Charge after Transfer: PCP Radha) Institutional Level of Care: Skilled - Diagnosis (1) Ankle fracture, bimalleolar, closed Priority: Primary Status: Acute (2) Goiter Priority: Secondary Status: Chronic (3) Hypertension Priority: Secondary Status: Chronic (4) COPD (chronic obstructive pulmonary disease) Priority: Secondary Status: Chronic (5) Hypokalemia Priority: Secondary Status: Acute (6) Diabetes mellitus Priority: Secondary Status: Chronic (7) Dyspepsia Priority: Secondary Status: Acute Prognosis: Good Aware of Diagnosis: Patient Aware of Prognosis: Patient - Transfer Medications Prescriptions: HYDROcodone/Acet 7.5/325 mg [[place] 7.5-325 mg] 1 tab PO Q6HR PRN 7 Days #28 tablet PRN Reason: moderate to severe pain Home Medications: BuPROPion XL (24 HR) [Wellbutrin Xl] 150 mg PO DAILY 01/01/16 [History] Clopidogrel [Plavix] 75 mg PO Q72H 01/01/16 [History] Duloxetine HCl [Cymbalta] 60 mg PO DAILY 01/01/16 [History] Fexofenadine HCl 180 mg PO DAILY 01/01/16 [History] Simvastatin [Zocor] 20 mg PO QPM 01/01/16 [History] Pantoprazole Sodium [Protonix] 40 mg PO DAILY 04/08/16 [History] Alendronate Sodium [Fosamax] 70 mg PO SA 07/30/16 [History] Albuterol Sulfate [Ventolin Hfa] 2 puff IH Q4H PRN 11/11/17 [History] Empagliflozin [Jardiance] 25 mg PO DAILY 11/11/17 [History] Losartan Potassium [Cozaar] 75 mg PO DAILY 11/11/17 [History] Montelukast [Singulair] 10 mg PO DAILY 11/11/17 [History] Tizanidine HCl [Zanaflex] 4 mg PO TID PRN 11/11/17 [History] Bumetanide 2 mg PO DAILY 12/21/18 [History] Cholecalciferol (Vitamin D3) [Vitamin D3] 1,000 unit PO DAILY 12/21/18 [History] Diclofenac Sodium 4 gm TP QID PRN 12/21/18 [History] Exenatide Microspheres [Bydureon Bcise] 2 mg SQ SA 12/21/18 [History] Folic Acid/Vit Bcomp,C [Hm Super Vitamin B Complex] 400 mcg PO DAILY 12/21/18 [History] Insulin ASPART [Novolog Flexpen] 5 - 15 unit SQ BIDWM 12/21/18 [History] Insulin Glargine,Hum.rec.anlog [Lantus Solostar] 10 unit SQ HS 12/21/18 [History] Insulin LISPRO [Humalog Kwikpen U-100] 5 - 15 unit SQ BIDWM 12/21/18 [History] Metformin HCl [Glucophage Xr] 750 mg PO BID 12/21/18 [History] Metoprolol Succinate 100 mg PO DAILY 12/21/18 [History] Mometasone Furoate [Nasonex] 2 spray NS DAILY 12/21/18 [History] Mv-Mn/Folic Acid/Calcium/Vit K [Women's 50 Plus Multivit Tab] 1 tab PO DAILY 12/21/18 [History] Nitroglycerin [Nitrostat] 0.4 mg SL Q5M PRN 12/21/18 [History] Tiotropium [place] [Spiriva Respimat] 2 puff IH QAM 12/21/18 [History] Enoxaparin [Lovenox] 30 mg SQ Q12HCO syringe 12/24/18 [Rx] Sennosides/Docusate Sodium [Senna Plus] 2 each PO BID tablet 12/24/18 [Rx] Bismuth Subsalicylate [PEPTO-BISMOL (262mg/15mL) Susp] 15 ml PO QID PRN mls 01/12/19 [Rx] Budesonide/Formoterol 160/4.5 [Symbicort 160/4.5] 2 puff IH BIDR inh 01/12/19 [Rx] HYDROcodone/Acet 7.5/325 mg [[place] 7.5-325 mg] 1 tab PO Q6HR PRN 7 Days #28 tablet 01/12/19 [Rx] Lidocaine Patch [Lidoderm 5% patch] 1 each TP HS adh..patch 01/12/19 [Rx] Methyl Salicylate/Menthol [Bengay] 1 appl TP HS tube 01/12/19 [Rx] Nicotine Patch [Nicoderm] 21 mg TD DAILY patch.td24 01/12/19 [Rx] Potassium Chloride 10 meq PO DAILY tab.er.prt 01/12/19 [Rx] Allergies/Adverse Reactions: Allergy/AdvReac Type Severity Reaction Status Date / Time alprazolam [From Xanax] Allergy See Verified 12/21/18 05:33 Comments gabapentin [From Neurontin] Allergy Dizziness Verified 12/21/18 05:33 glycerin Allergy Hives Verified 12/21/18 05:33 haloperidol [From Haldol] Allergy See Verified 12/21/18 05:33 Comments latex Allergy Blister Verified 12/21/18 05:33 lisinopril Allergy Cough Verified 12/21/18 05:33 pregabalin [From Lyrica] Allergy Dizziness Verified 12/21/18 05:33 oxycodone [From Percocet] AdvReac See Verified 12/21/18 05:33 Comments - Respiratory Orders Oxygen / L per min (2 L/m by nasal cannula when necessary to keep sat greater than 90%.) Smoking Cessation: Smoking cessation has been advised. For more information, call the [place] Tobacco Quit Line at 0-513-IISR-NOW. - Lab Orders Lab Orders: Other (include drug levels w/frequency) (CBC with differential, BMP, magnesium level in 10 days) - Advance Directives Code Status: Full Code - Mobility Orders Other (NWB left leg) - Rehabiliation Orders Rehab Potential: Good Rehab Orders: Evaluation for Physical Therapy, Evaluation for Occupational Therapy - Diet Orders No Concentrated Sweets CERTIFICATION: I certify that the transfer of the above named patient to an Extended Care Facility is necessary for the continuing treatment of the diagnosis listed. The above information is true and accurate reflection of patient's current condition. Confidential - Redisclosure prohibited without a patient's written consent.
[2019-01-12] MEDS: Tiotropium 18 MCG inhalation IH SCH (11:01)
[2019-01-12] MEDS: Budesonide/Formoterol 160/4.5 1 PUFF INH IH SCH (11:01)
== END 2019-01-12 12:35 | DRG 560 ==
LOC: INPPIK 12:44
PROVIDERS: ADMIT Internal Medicine; ATTEND Internal Medicine

== ENCOUNTER 2020-09-25 06:38 | Inpatient (IN) ==
[2020-09-25 07:10] LABS: Bilirubin,Urine Negative (Negative); Blood,Urine Negative (Negative); Clarity,Urine Clear (Clear); Color,Urine Yellow (Yellow); Glucose,Urine (UA) >=1000 mg/dL (Normal); Ketones,Urine 15 mg/dL (Negative); Leukocyte Esterase,Urine Negative (Negative); Nitrite,Urine Negative (Negative); PH,Urine 5.5 pH Units (5.0-8.0); Protein,Urine Negative (Neg-Trace); Urobilinogen,Urine Normal (Normal)
[2020-09-25 07:15] LABS: Calcium Oxalate Crystals,Urine Present
[2020-09-25 07:57] LABS: Basophils % 0.3 %; Eosinophils # 0.1 K/mcL (0.0-0.6); Eosinophils % 0.8 %; Hematocrit 49.5 % (35.3-44.9); Hemoglobin 16.7 g/dL (11.5-15.4); Immature Granulocytes % 0.7 % (0-4); Lymphocytes % 27.7 %; Mean Corpuscular HGB Conc 33.7 g/dL (31.6-35.5); Mean Corpuscular Hemoglobin 31.6 pg (28.0-33.3); Mean Corpuscular Volume 93.6 fL (83.0-100.0); Mean Platelet Volume 9.5 fL (9.4-12.4); Monocytes % 8.9 %; Neutrophils # 6.6 K/mcL (1.6-8.9); Platelet Count 328 K/mcL (140-400); Red Blood Count 5.29 M/mcL (3.82-4.97); Red Cell Distribution Width 14.1 % (11.5-14.5); Segmented Neutrophils % 61.6 %; White Blood Count 10.7 K/mcL (4.3-11.1)
[2020-09-25 08:03] LABS: Prothrombin Time 11.2 Seconds (9.4-12.1)
[2020-09-25 08:06] LABS: Activated Partial Thrombo Time 28.8 Seconds (26.0-36.0)
[2020-09-25 08:12] LABS: Alanine Aminotransferase 19 Units/L (7-52); Albumin 3.9 g/dL (3.5-5.7); Albumin/Globulin Ratio 1.4 (1.1-2.2); Alkaline Phosphatase 42 Units/L (34-104); Aspartate Amino Transferase 14 Units/L (13-39); BUN/Creatinine Ratio 27 (6-26); Bilirubin,Total 0.5 mg/dL (0.3-1.0); Blood Urea Nitrogen 15 mg/dL (8-23); Carbon Dioxide 30 mEq/L (23-29); Chloride 97 mEq/L (98-107); Globulin 2.7 g/dL (2.4-3.5); Glucose 201 mg/dL (70-105); Magnesium 2.1 mg/dL (1.6-2.6); Osmolality,Calculated 287 (280-300); Potassium 3.4 mEq/L (3.5-5.1); Sodium 135 mEq/L (136-145); Total Protein 6.6 g/dL (6.4-8.9); Troponin I < 0.03 ng/mL (< 0.04); eGFR For African Americans > 60 (> 60); eGFR For Non-African Americans > 60 (> 60)
[2020-09-25] MEDS ORDERED: Ondansetron 4 MG/2 ML VIAL IVP PRN (09:11)
[2020-09-25] MEDS ORDERED: Naloxone 0.4 MG/ML INJ IVP PRN (09:11)
[2020-09-25] MEDS ORDERED: MOM Conc 10 ML UD.LIQ PO PRN (09:11)
[2020-09-25] MEDS ORDERED: Dextrose Gel 15 GM/37.5 ML TUBE PO PRN ×2 (09:18)
[2020-09-25] MEDS ORDERED: D5% in Water 1,000 ML IVC PRN (09:18)
[2020-09-25] MEDS ORDERED: *HR* Dextrose 50 % in Water (Vial) 50 ML VIAL IVP PRN (09:18)
[2020-09-25] MEDS ORDERED: Tiotropium 10 INH DOSE IH SCH (09:30)
[2020-09-25] MEDS ORDERED: Orphenadrine 100 MG TABLET.ER PO SCH (09:30)
[2020-09-25] MEDS ORDERED: Metoprolol XL (24 HR) Succ 50 MG TAB.ER.24H PO SCH (09:30)
[2020-09-25] MEDS: Tiotropium 10 INH DOSE IH SCH (11:25)
[2020-09-25] MEDS: 0.9 % Sodium Chloride 1,000 ML IVC SCH ×2 (12:33→23:20)
[2020-09-25] MEDS: Insulin LISPRO 300 UNITS/3 ML VIAL SUBQ SCH ×3 (12:35→20:36)
[2020-09-25] MEDS ORDERED: Nicotine 14 MG PATCH.TD24 TD SCH (13:15)
[2020-09-25] MEDS: Metoprolol XL (24 HR) Succ 50 MG TAB.ER.24H PO SCH (13:30)
[2020-09-25] MEDS: (Umeclidinium Brm/Vilanterol Tr [Anoro Ellipta 62.5-2 IH SCH (13:31)
[2020-09-25] MEDS: Orphenadrine 100 MG TABLET.ER PO SCH ×2 (13:31→20:35)
[2020-09-25] MEDS: Acetaminophen 325 MG TABLET PO PRN (15:15)
[2020-09-25] MEDS: Gabapentin 100 MG CAPSULE PO SCH ×2 (17:25→20:40)
[2020-09-25] MEDS: Insulin DETEMIR 100 UNIT/ML X5UNITS SUBQ SCH (20:36)
[2020-09-26 06:34] LABS: Hematocrit 47.5 % (35.3-44.9); Hemoglobin 15.5 g/dL (11.5-15.4); Mean Corpuscular HGB Conc 32.6 g/dL (31.6-35.5); Mean Corpuscular Hemoglobin 31.3 pg (28.0-33.3); Mean Platelet Volume 9.6 fL (9.4-12.4); Platelet Count 321 K/mcL (140-400); Red Blood Count 4.95 M/mcL (3.82-4.97); Red Cell Distribution Width 14.3 % (11.5-14.5)
[2020-09-26 07:05] LABS: BUN/Creatinine Ratio 25 (6-26); Blood Urea Nitrogen 13 mg/dL (8-23); Calcium 8.9 mg/dL (8.6-10.3); Carbon Dioxide 33 mEq/L (23-29); Chloride 97 mEq/L (98-107); Glucose 154 mg/dL (70-105); Magnesium 2.1 mg/dL (1.6-2.6); Osmolality,Calculated 283 (280-300); Potassium 3.5 mEq/L (3.5-5.1); Sodium 135 mEq/L (136-145); eGFR For African Americans > 60 (> 60); eGFR For Non-African Americans > 60 (> 60)
[2020-09-26] MEDS: Insulin LISPRO 300 UNITS/3 ML VIAL SUBQ SCH ×4 (08:15→21:00)
[2020-09-26] MEDS: Furosemide 40 MG TABLET PO SCH (08:17)
[2020-09-26] MEDS: Loratadine 10 MG TABLET PO SCH (08:17)
[2020-09-26] MEDS: Orphenadrine 100 MG TABLET.ER PO SCH ×2 (08:17→20:48)
[2020-09-26] MEDS: Gabapentin 100 MG CAPSULE PO SCH ×3 (08:18→20:46)
[2020-09-26] MEDS: (Umeclidinium Brm/Vilanterol Tr [Anoro Ellipta 62.5-2 IH SCH (08:18)
[2020-09-26] MEDS: Metoprolol XL (24 HR) Succ 50 MG TAB.ER.24H PO SCH (08:18)
[2020-09-26] MEDS: Fluticasone Propionate Nasal 50 MCG/SPRAY BOTTLE NS SCH (08:19)
[2020-09-26] MEDS: Tiotropium 10 INH DOSE IH SCH (09:44)
[2020-09-26] MEDS: Insulin DETEMIR 100 UNIT/ML X5UNITS SUBQ SCH (21:01)
[2020-09-27] MEDS: Acetaminophen 325 MG TABLET PO PRN (03:46)
[2020-09-27] MEDS: Metoprolol XL (24 HR) Succ 50 MG TAB.ER.24H PO SCH (08:32)
[2020-09-27] MEDS: Gabapentin 100 MG CAPSULE PO SCH ×3 (08:33→22:01)
[2020-09-27] MEDS: Furosemide 40 MG TABLET PO SCH (08:33)
[2020-09-27] MEDS: Loratadine 10 MG TABLET PO SCH (08:33)
[2020-09-27] MEDS: Orphenadrine 100 MG TABLET.ER PO SCH ×2 (08:33→22:02)
[2020-09-27] MEDS: Insulin LISPRO 300 UNITS/3 ML VIAL SUBQ SCH ×4 (09:13→22:03)
[2020-09-27] MEDS: Fluticasone Propionate Nasal 50 MCG/SPRAY BOTTLE NS SCH (09:14)
[2020-09-27] MEDS: Tiotropium 10 INH DOSE IH SCH (11:26)
[2020-09-27] MEDS: (Umeclidinium Brm/Vilanterol Tr [Anoro Ellipta 62.5-2 IH SCH (12:23)
[2020-09-27] MEDS: Insulin DETEMIR 100 UNIT/ML X5UNITS SUBQ SCH (22:02)
[2020-09-28] MEDS: Acetaminophen 325 MG TABLET PO PRN (00:36)
[2020-09-28] MEDS: Loratadine 10 MG TABLET PO SCH (09:52)
[2020-09-28] MEDS: Metoprolol XL (24 HR) Succ 50 MG TAB.ER.24H PO SCH (09:52)
[2020-09-28] MEDS: Gabapentin 100 MG CAPSULE PO SCH (09:53)
[2020-09-28] MEDS: Furosemide 40 MG TABLET PO SCH (09:53)
[2020-09-28] MEDS: Orphenadrine 100 MG TABLET.ER PO SCH (09:53)
[2020-09-28] MEDS: Fluticasone Propionate Nasal 50 MCG/SPRAY BOTTLE NS SCH (09:54)
[2020-09-28] MEDS: (Umeclidinium Brm/Vilanterol Tr [Anoro Ellipta 62.5-2 IH SCH (09:55)
[2020-09-28] MEDS: Insulin LISPRO 300 UNITS/3 ML VIAL SUBQ SCH ×2 (09:55→12:30)
[2020-09-28] MEDS: Tiotropium 10 INH DOSE IH SCH (11:57)
[2020-09-28 16:04] VITALS: BP 138/89
== END 2020-09-28 14:46 | disposition other institution (70) | DRG 74 ==
LOC: EMEROOPIK 06:38 → INPPIK 06:38
PROVIDERS: ADMIT Family Medicine; ATTEND Family Medicine

== ENCOUNTER 2020-09-28 10:05 | Inpatient (IN) ==
[2020-09-28] MEDS ORDERED: Albuterol 2.5 MG/3 ML NEBULIZER AER PRN (17:20)
[2020-09-28] MEDS ORDERED: *HR* Dextrose 50 % in Water (Vial) 50 ML VIAL IVP PRN (17:53)
[2020-09-28] MEDS ORDERED: Dextrose Gel 15 GM/37.5 ML TUBE PO PRN ×2 (17:53)
[2020-09-28] MEDS ORDERED: D5% in Water 1,000 ML IVC PRN (17:53)
[2020-09-28] MEDS: tiZANidine 4 MG TABLET PO SCH (19:38)
[2020-09-28] MEDS: Insulin LISPRO 300 UNITS/3 ML VIAL SUBQ SCH (19:39)
[2020-09-28] MEDS: Gabapentin 100 MG CAPSULE PO SCH (19:39)
[2020-09-28] MEDS: Insulin DETEMIR 100 UNIT/ML X5UNITS SUBQ SCH (19:39)
[2020-09-29] MEDS: Melatonin 3 MG TABLET PO PRN (00:43)
[2020-09-29] MEDS: Methyl Salicylate/Menthol 57 APPL/57 GM TUBE TP PRN (03:34)
[2020-09-29 06:45] LABS: Basophils % 0.3 %; Eosinophils # 0.1 K/mcL (0.0-0.6); Eosinophils % 1.2 %; Hematocrit 46.3 % (35.3-44.9); Hemoglobin 15.2 g/dL (11.5-15.4); Immature Granulocytes % 0.6 % (0-4); Lymphocytes # 2.8 K/mcL (0.6-4.6); Mean Corpuscular HGB Conc 32.8 g/dL (31.6-35.5); Mean Corpuscular Hemoglobin 31.5 pg (28.0-33.3); Mean Corpuscular Volume 95.9 fL (83.0-100.0); Mean Platelet Volume 9.7 fL (9.4-12.4); Monocytes # 0.9 K/mcL (0.0-1.3); Monocytes % 9.2 %; Platelet Count 301 K/mcL (140-400); Red Blood Count 4.83 M/mcL (3.82-4.97); Red Cell Distribution Width 13.6 % (11.5-14.5); Segmented Neutrophils % 60.7 %; White Blood Count 9.9 K/mcL (4.3-11.1)
[2020-09-29 06:55] LABS: Prothrombin Time 11.5 Seconds (9.4-12.1)
[2020-09-29 06:56] LABS: Activated Partial Thrombo Time 28.2 Seconds (26.0-36.0)
[2020-09-29] MEDS: Acetaminophen 325 MG TABLET PO PRN (07:02)
[2020-09-29 07:13] LABS: eGFR For African Americans > 60 (> 60); eGFR For Non-African Americans > 60 (> 60)
[2020-09-29] MEDS: Cyanocobalamin (B-12) 1,000 MCG TABLET PO SCH (09:06)
[2020-09-29] MEDS: Cholecalciferol (D-3) 1,000 UNIT (25MCG) TABLET PO SCH (09:06)
[2020-09-29] MEDS: tiZANidine 4 MG TABLET PO SCH ×3 (09:06→20:33)
[2020-09-29] MEDS: Metoprolol XL (24 HR) Succ 50 MG TAB.ER.24H PO SCH (09:06)
[2020-09-29] MEDS: Gabapentin 100 MG CAPSULE PO SCH ×3 (09:06→20:33)
[2020-09-29] MEDS: Furosemide 40 MG TABLET PO SCH ×2 (09:06→17:50)
[2020-09-29] MEDS: Insulin LISPRO 300 UNITS/3 ML VIAL SUBQ SCH ×3 (09:07→17:24)
[2020-09-29 09:25] LABS: Estimated Average Glucose 258 mg/dl; Hemoglobin A1C 10.6 %
[2020-09-29] MEDS: VILANTEROL IH SCH (10:25)
[2020-09-29] MEDS: UMECLIDINIUM IH SCH (10:25)
[2020-09-29] MEDS: Tiotropium 10 INH DOSE IH SCH (10:26)
[2020-09-29] MEDS: *HR* Enoxaparin 100 MG/ML SYRINGE SQ SCH (17:48)
[2020-09-29] MEDS: Insulin DETEMIR 100 UNIT/ML X5UNITS SUBQ SCH (20:33)
[2020-09-30] MEDS: Insulin LISPRO 300 UNITS/3 ML VIAL SUBQ SCH ×5 (03:51→22:11)
[2020-09-30] MEDS: *HR* Enoxaparin 100 MG/ML SYRINGE SQ SCH (05:35)
[2020-09-30] MEDS: Cholecalciferol (D-3) 1,000 UNIT (25MCG) TABLET PO SCH (08:06)
[2020-09-30] MEDS: Furosemide 40 MG TABLET PO SCH ×2 (08:09→16:21)
[2020-09-30] MEDS: Cyanocobalamin (B-12) 1,000 MCG TABLET PO SCH (08:09)
[2020-09-30] MEDS: Gabapentin 100 MG CAPSULE PO SCH ×3 (08:10→22:11)
[2020-09-30] MEDS: tiZANidine 4 MG TABLET PO SCH ×3 (08:12→22:11)
[2020-09-30] MEDS: Metoprolol XL (24 HR) Succ 50 MG TAB.ER.24H PO SCH (08:12)
[2020-09-30] MEDS: UMECLIDINIUM IH SCH (08:13)
[2020-09-30] MEDS: VILANTEROL IH SCH (08:13)
[2020-09-30] MEDS: Tiotropium 10 INH DOSE IH SCH (09:35)
[2020-09-30] MEDS: Insulin DETEMIR 100 UNIT/ML X5UNITS SUBQ SCH (22:12)
[2020-09-30] MEDS: Melatonin 3 MG TABLET PO PRN (22:53)
[2020-10-01] MEDS: *HR* Enoxaparin 40 MG/0.4 ML SYRINGE SQ SCH (05:35)
[2020-10-01] MEDS: Methyl Salicylate/Menthol 57 APPL/57 GM TUBE TP PRN ×2 (06:20→23:08)
[2020-10-01] MEDS: Cholecalciferol (D-3) 1,000 UNIT (25MCG) TABLET PO SCH (08:26)
[2020-10-01] MEDS: Furosemide 40 MG TABLET PO SCH ×2 (08:27→16:39)
[2020-10-01] MEDS: Gabapentin 100 MG CAPSULE PO SCH ×3 (08:27→20:56)
[2020-10-01] MEDS: Cyanocobalamin (B-12) 1,000 MCG TABLET PO SCH (08:28)
[2020-10-01] MEDS: Insulin LISPRO 300 UNITS/3 ML VIAL SUBQ SCH ×4 (08:28→20:57)
[2020-10-01] MEDS: Metoprolol XL (24 HR) Succ 50 MG TAB.ER.24H PO SCH (08:28)
[2020-10-01] MEDS: tiZANidine 4 MG TABLET PO SCH ×3 (08:28→20:56)
[2020-10-01] MEDS: Tiotropium 10 INH DOSE IH SCH (09:17)
[2020-10-01] MEDS: UMECLIDINIUM IH SCH (09:20)
[2020-10-01] MEDS: VILANTEROL IH SCH (09:20)
[2020-10-01] MEDS: Melatonin 3 MG TABLET PO PRN (20:56)
[2020-10-01] MEDS: Insulin DETEMIR 100 UNIT/ML X5UNITS SUBQ SCH (20:56)
[2020-10-02] MEDS: Acetaminophen 325 MG TABLET PO PRN (03:54)
[2020-10-02] MEDS: *HR* Enoxaparin 40 MG/0.4 ML SYRINGE SQ SCH (05:44)
[2020-10-02] MEDS: Cholecalciferol (D-3) 1,000 UNIT (25MCG) TABLET PO SCH (08:33)
[2020-10-02] MEDS: Furosemide 40 MG TABLET PO SCH ×2 (08:34→17:30)
[2020-10-02] MEDS: tiZANidine 4 MG TABLET PO SCH ×3 (08:34→20:48)
[2020-10-02] MEDS: Gabapentin 100 MG CAPSULE PO SCH ×3 (08:34→20:48)
[2020-10-02] MEDS: Cyanocobalamin (B-12) 1,000 MCG TABLET PO SCH (08:34)
[2020-10-02] MEDS: Metoprolol XL (24 HR) Succ 50 MG TAB.ER.24H PO SCH (08:34)
[2020-10-02] MEDS: Insulin LISPRO 300 UNITS/3 ML VIAL SUBQ SCH ×4 (08:34→20:49)
[2020-10-02] MEDS: Tiotropium 10 INH DOSE IH SCH (11:38)
[2020-10-02] MEDS: UMECLIDINIUM IH SCH (11:40)
[2020-10-02] MEDS: VILANTEROL IH SCH (11:40)
[2020-10-02] MEDS: Insulin DETEMIR 100 UNIT/ML X5UNITS SUBQ SCH (20:49)
[2020-10-02] MEDS: Methyl Salicylate/Menthol 57 APPL/57 GM TUBE TP PRN (23:17)
[2020-10-02] MEDS: Melatonin 3 MG TABLET PO PRN (23:17)
[2020-10-03] MEDS: Acetaminophen 325 MG TABLET PO PRN ×2 (03:15→13:55)
[2020-10-03] MEDS: *HR* Enoxaparin 40 MG/0.4 ML SYRINGE SQ SCH (06:41)
[2020-10-03] MEDS: tiZANidine 4 MG TABLET PO SCH ×2 (08:31→20:07)
[2020-10-03] MEDS: Furosemide 40 MG TABLET PO SCH ×2 (08:31→17:25)
[2020-10-03] MEDS: Metoprolol XL (24 HR) Succ 50 MG TAB.ER.24H PO SCH (08:31)
[2020-10-03] MEDS: Cyanocobalamin (B-12) 1,000 MCG TABLET PO SCH (08:31)
[2020-10-03] MEDS: Gabapentin 100 MG CAPSULE PO SCH ×2 (08:32→17:25)
[2020-10-03] MEDS: Cholecalciferol (D-3) 1,000 UNIT (25MCG) TABLET PO SCH (08:32)
[2020-10-03] MEDS: Insulin LISPRO 300 UNITS/3 ML VIAL SUBQ SCH ×4 (08:39→21:23)
[2020-10-03 10:07] LABS: Basophils % 0.4 %; Eosinophils # 0.1 K/mcL (0.0-0.6); Eosinophils % 1.4 %; Hematocrit 48.3 % (35.3-44.9); Hemoglobin 15.8 g/dL (11.5-15.4); Immature Granulocytes % 0.5 % (0-4); Lymphocytes # 2.3 K/mcL (0.6-4.6); Lymphocytes % 23.8 %; Mean Corpuscular HGB Conc 32.7 g/dL (31.6-35.5); Mean Corpuscular Hemoglobin 31.3 pg (28.0-33.3); Mean Corpuscular Volume 95.6 fL (83.0-100.0); Mean Platelet Volume 9.7 fL (9.4-12.4); Monocytes % 9.9 %; Neutrophils # 6.2 K/mcL (1.6-8.9); Platelet Count 312 K/mcL (140-400); Red Blood Count 5.05 M/mcL (3.82-4.97); Red Cell Distribution Width 13.2 % (11.5-14.5); White Blood Count 9.8 K/mcL (4.3-11.1)
[2020-10-03 10:31] LABS: BUN/Creatinine Ratio 19 (6-26); Blood Urea Nitrogen 9 mg/dL (8-23); Carbon Dioxide 37 mEq/L (23-29); Chloride 92 mEq/L (98-107); Glucose 188 mg/dL (70-105); Osmolality,Calculated 282 (280-300); Potassium 3.9 mEq/L (3.5-5.1); Sodium 134 mEq/L (136-145); eGFR For African Americans > 60 (> 60); eGFR For Non-African Americans > 60 (> 60)
[2020-10-03] MEDS: Tiotropium 10 INH DOSE IH SCH (10:35)
[2020-10-03] MEDS: UMECLIDINIUM IH SCH (10:37)
[2020-10-03] MEDS: VILANTEROL IH SCH (10:37)
[2020-10-03] MEDS: Methyl Salicylate/Menthol 57 APPL/57 GM TUBE TP PRN (13:55)
[2020-10-03] MEDS ORDERED: Gabapentin 100 MG CAPSULE PO SCH (15:00)
[2020-10-03] MEDS: Gabapentin 400 MG CAPSULE PO SCH (20:07)
[2020-10-03] MEDS: Insulin DETEMIR 100 UNIT/ML X5UNITS SUBQ SCH (21:22)
[2020-10-04] MEDS: Acetaminophen 325 MG TABLET PO PRN (03:30)
[2020-10-04] MEDS: *HR* Enoxaparin 40 MG/0.4 ML SYRINGE SQ SCH (06:01)
[2020-10-04] MEDS: Cholecalciferol (D-3) 1,000 UNIT (25MCG) TABLET PO SCH (08:19)
[2020-10-04] MEDS: Cyanocobalamin (B-12) 1,000 MCG TABLET PO SCH (08:20)
[2020-10-04] MEDS: Furosemide 40 MG TABLET PO SCH ×2 (08:20→18:01)
[2020-10-04] MEDS: Gabapentin 100 MG CAPSULE PO SCH ×2 (08:20→18:01)
[2020-10-04] MEDS: Methyl Salicylate/Menthol 57 APPL/57 GM TUBE TP PRN (08:21)
[2020-10-04] MEDS: Metoprolol XL (24 HR) Succ 50 MG TAB.ER.24H PO SCH (08:21)
[2020-10-04] MEDS: Insulin LISPRO 300 UNITS/3 ML VIAL SUBQ SCH ×4 (08:28→20:29)
[2020-10-04] MEDS: Tiotropium 10 INH DOSE IH SCH (09:35)
[2020-10-04] MEDS: UMECLIDINIUM IH SCH (09:40)
[2020-10-04] MEDS: VILANTEROL IH SCH (09:40)
[2020-10-04] MEDS: tiZANidine 4 MG TABLET PO SCH (20:26)
[2020-10-04] MEDS: Gabapentin 400 MG CAPSULE PO SCH (20:26)
[2020-10-04] MEDS: Insulin DETEMIR 100 UNIT/ML X5UNITS SUBQ SCH (20:28)
[2020-10-05] MEDS: Methyl Salicylate/Menthol 57 APPL/57 GM TUBE TP PRN ×3 (01:08→20:26)
[2020-10-05] MEDS: Acetaminophen 325 MG TABLET PO PRN ×2 (01:55→08:16)
[2020-10-05] MEDS: Melatonin 3 MG TABLET PO PRN ×2 (01:55→20:24)
[2020-10-05] MEDS: *HR* Enoxaparin 40 MG/0.4 ML SYRINGE SQ SCH (06:26)
[2020-10-05] MEDS: Cholecalciferol (D-3) 1,000 UNIT (25MCG) TABLET PO SCH (08:15)
[2020-10-05] MEDS: Cyanocobalamin (B-12) 1,000 MCG TABLET PO SCH (08:16)
[2020-10-05] MEDS: Metoprolol XL (24 HR) Succ 50 MG TAB.ER.24H PO SCH (08:16)
[2020-10-05] MEDS: Furosemide 40 MG TABLET PO SCH ×2 (08:16→17:16)
[2020-10-05] MEDS: Gabapentin 100 MG CAPSULE PO SCH ×2 (08:17→17:16)
[2020-10-05] MEDS: Insulin LISPRO 300 UNITS/3 ML VIAL SUBQ SCH ×4 (08:22→20:25)
[2020-10-05] MEDS: VILANTEROL IH SCH (09:14)
[2020-10-05] MEDS: UMECLIDINIUM IH SCH (09:14)
[2020-10-05] MEDS: Tiotropium 10 INH DOSE IH SCH (09:17)
[2020-10-05] MEDS: tiZANidine 4 MG TABLET PO SCH (20:25)
[2020-10-05] MEDS: Gabapentin 400 MG CAPSULE PO SCH (20:25)
[2020-10-05] MEDS: Insulin DETEMIR 100 UNIT/ML X5UNITS SUBQ SCH (20:25)
[2020-10-06] MEDS: *HR* Enoxaparin 40 MG/0.4 ML SYRINGE SQ SCH (05:26)
[2020-10-06] MEDS: Gabapentin 100 MG CAPSULE PO SCH ×2 (09:09→13:54)
[2020-10-06] MEDS: Furosemide 40 MG TABLET PO SCH ×2 (09:10→17:07)
[2020-10-06] MEDS: Metoprolol XL (24 HR) Succ 50 MG TAB.ER.24H PO SCH (09:11)
[2020-10-06] MEDS: Cyanocobalamin (B-12) 1,000 MCG TABLET PO SCH (09:12)
[2020-10-06] MEDS: Cholecalciferol (D-3) 1,000 UNIT (25MCG) TABLET PO SCH (09:13)
[2020-10-06] MEDS: Methyl Salicylate/Menthol 57 APPL/57 GM TUBE TP PRN (09:20)
[2020-10-06] MEDS: Insulin LISPRO 300 UNITS/3 ML VIAL SUBQ SCH ×4 (09:21→22:27)
[2020-10-06] MEDS: UMECLIDINIUM IH SCH (09:59)
[2020-10-06] MEDS: VILANTEROL IH SCH (09:59)
[2020-10-06] MEDS: Tiotropium 10 INH DOSE IH SCH (10:01)
[2020-10-06] MEDS: Insulin DETEMIR 100 UNIT/ML X5UNITS SUBQ SCH (22:25)
[2020-10-06] MEDS: Gabapentin 400 MG CAPSULE PO SCH (22:29)
[2020-10-06] MEDS: tiZANidine 4 MG TABLET PO SCH (22:29)
[2020-10-06] MEDS: Melatonin 3 MG TABLET PO PRN (22:29)
[2020-10-07] MEDS: Acetaminophen 325 MG TABLET PO PRN ×2 (00:07→09:29)
[2020-10-07] MEDS: Methyl Salicylate/Menthol 57 APPL/57 GM TUBE TP PRN (00:10)
[2020-10-07] MEDS: *HR* Enoxaparin 40 MG/0.4 ML SYRINGE SQ SCH (06:26)
[2020-10-07] MEDS: Furosemide 40 MG TABLET PO SCH ×2 (06:44→15:29)
[2020-10-07] MEDS: UMECLIDINIUM IH SCH (09:14)
[2020-10-07] MEDS: VILANTEROL IH SCH (09:14)
[2020-10-07] MEDS: Tiotropium 10 INH DOSE IH SCH (09:16)
[2020-10-07] MEDS: Cholecalciferol (D-3) 1,000 UNIT (25MCG) TABLET PO SCH (09:17)
[2020-10-07] MEDS: Insulin LISPRO 300 UNITS/3 ML VIAL SUBQ SCH ×4 (09:17→20:26)
[2020-10-07] MEDS: Gabapentin 100 MG CAPSULE PO SCH ×2 (09:18→15:29)
[2020-10-07] MEDS: Cyanocobalamin (B-12) 1,000 MCG TABLET PO SCH (09:18)
[2020-10-07] MEDS: Metoprolol XL (24 HR) Succ 50 MG TAB.ER.24H PO SCH (09:18)
[2020-10-07] MEDS: Gabapentin 400 MG CAPSULE PO SCH (20:26)
[2020-10-07] MEDS: Insulin DETEMIR 100 UNIT/ML X5UNITS SUBQ SCH (20:26)
[2020-10-07] MEDS: tiZANidine 4 MG TABLET PO SCH (20:26)
[2020-10-08] MEDS: *HR* Enoxaparin 40 MG/0.4 ML SYRINGE SQ SCH (05:16)
[2020-10-08 06:38] VITALS: BP 170/79
[2020-10-08] MEDS: Acetaminophen 325 MG TABLET PO PRN (07:53)
[2020-10-08] MEDS: Cyanocobalamin (B-12) 1,000 MCG TABLET PO SCH (07:53)
[2020-10-08] MEDS: Cholecalciferol (D-3) 1,000 UNIT (25MCG) TABLET PO SCH (07:53)
[2020-10-08] MEDS: Gabapentin 100 MG CAPSULE PO SCH (07:53)
[2020-10-08] MEDS: Metoprolol XL (24 HR) Succ 50 MG TAB.ER.24H PO SCH (07:53)
[2020-10-08] MEDS: Furosemide 40 MG TABLET PO SCH (07:54)
[2020-10-08] MEDS: Insulin LISPRO 300 UNITS/3 ML VIAL SUBQ SCH (07:54)
[2020-10-08] MEDS: Tiotropium 10 INH DOSE IH SCH (11:30)
[2020-10-08] MEDS: VILANTEROL IH SCH (13:29)
[2020-10-08] MEDS: UMECLIDINIUM IH SCH (13:29)
== END 2020-10-08 12:44 | DRG 945 ==
LOC: INPPIK 14:43
PROVIDERS: ADMIT Family Medicine; ATTEND Family Medicine